=== PATIENT | female | born 1940 | race Caucasian/White ===

== ENCOUNTER 2018-08-04 18:05 | Inpatient (IN) | payer MEDICARE ==
[2018-08-04] MEDS ORDERED: Sodium Chloride 0.9% 100 ML ONE (22:55)
[2018-08-04] MEDS ORDERED: Cefepime 2 GM VIAL ONE (22:55)
[2018-08-05] MEDS ORDERED: ALPRAZolam 0.25 MG TAB PO PRN (03:06)
[2018-08-05] MEDS ORDERED: Calcium Carbonate 500 MG ChewTAB PO PRN (03:09)
[2018-08-05] MEDS ORDERED: Bisacodyl 5 MG TAB PO PRN (03:09)
[2018-08-05] MEDS ORDERED: Ondansetron PF 4 MG/2 ML Vial IVP PRN (03:09)
[2018-08-05] MEDS ORDERED: Guaifenesin DM 100-10/5 ML UDCUP PO PRN (03:09)
[2018-08-05] MEDS ORDERED: Senokot S 8.6-50 MG TAB PO PRN (03:09)
[2018-08-05] MEDS ORDERED: Acetaminophen 325 MG TAB PO PRN (03:09)
[2018-08-05 03:49] LABS: #Lymphocytes 0.6 thou/uL (1.20-3.40); #Monocytes 0.2 thou/uL (0.11-0.59); #Neutrophils 5.6 thou/uL (1.40-6.50); %Basophils 0.2 % (0.0-1.0); %Lymphocytes 9.8 % (21.0-51.0); %Monocytes 2.7 % (0.0-10.0); %Neutrophils 87.4 % (42.0-75.0); Hemoglobin 12.3 g/dL (12.0-16.0); Mean Corpuscular Hemoglobin 31.9 pg (27.0-31.0); Mean Corpuscular Volume 96.8 fL (78.0-98.0); Mean Platelet Volume 7.4 fL (7.4-10.4); Platelet Count 282 thou/uL (130-400); RBC Distribution Width 12.8 % (11.5-14.5); Red Blood Cell (RBC) Count 3.86 mill/uL (4.20-5.40); White Blood Cell (WBC) Count 6.4 thou/uL (4.8-10.8)
[2018-08-05 04:09] LABS: Anion Gap 12 mmol/L (10-20); BUN (Urea Nitrogen) 14 mg/dL (9.8-20.1); Calc. Creatinine Clearance 0 mL/min (70-130); Calcium 9.4 mg/dL (7.8-10.44); Carbon Dioxide 29 mmol/L (23-31); Chloride 96 mmol/L (98-107); Estimated GFR-MDRD 79; Glucose 237 mg/dL (83-110); Potassium 4.4 mmol/L (3.5-5.1); Sodium 133 mmol/L (136-145)
[2018-08-05] MEDS: Mometasone/Formoterol 120 PUFF INHALER INH SCH ×2 (08:17→18:44)
[2018-08-05] MEDS ORDERED: Non-Formulary Item 1 EACH (Fluticasone/Vilanterol [Breo Ellipta 200-25 Mcg Inh] 1 EACH) IH SCH (09:00)
[2018-08-05] MEDS ORDERED: Amlodipine 5 MG TAB ONE (10:44)
[2018-08-05] MEDS: Levothyroxine Sodium 112 MCG TAB PO SCH (10:51)
[2018-08-05] MEDS: Dronedarone HCl 400 MG TAB PO SCH ×2 (10:51→17:16)
[2018-08-05] MEDS: predniSONE 20 MG TAB PO SCH ×2 (10:51→17:16)
[2018-08-05] MEDS: Amlodipine 5 MG TAB PO SCH (10:51)
[2018-08-05] MEDS: Famotidine 20 MG TAB PO SCH ×2 (10:52→21:11)
[2018-08-05] MEDS: Apixaban 2.5 MG TAB PO SCH ×2 (10:52→21:11)
[2018-08-05] MEDS: Famotidine/PF 20 mg/2ml Vial SLOW IVP SCH ×2 (10:52→21:11)
[2018-08-05] MEDS: Citalopram 20 MG TAB PO SCH (10:52)
--- NOTE | 2018-08-05 13:41 | HP ---
CHIEF COMPLAINT: Shortness of breath. HISTORY OF PRESENT ILLNESS: The patient is a 78-year-old female, who presented to [facility] by EMS after she became sick, which presented as shortness of breath. Apparently, she has a history of COPD versus asthma problem at home and she was seen by her primary care physician on Saturday, a week ago, Dr. Atkinson. She felt fine until this morning when she started having acute onset of a shortness of breath. She denied any chest pains. She felt feverish. She had some cough with mucus/yellow phlegm production. She had some chills. She was brought to the emergency room and had a pulse oximetry was running in the 80s. She was tachycardic, tachypneic. She has been treated at [facility] for possible CHF exacerbation/pneumonia and she was transported to [facility] in [place], and she is getting admitted for further management of her problem. She had some runny nose for a week. She felt tired, but everything gradually got worse and when she became short of breath, she called EMS and was transported to the emergency room. Her temperature in the emergency room was up to 103, tympanic. She was given one dose of vancomycin and one dose of cefepime. PAST MEDICAL HISTORY: Positive for; 1. Questionable chronic obstructive pulmonary disease versus asthma. 2. Hypertension. 3. Anxiety and depression. 4. Hypothyroidism. 5. History of atrial fibrillation. PAST SURGICAL HISTORY: Cataract surgery. ALLERGIES: NONE EXCEPT FOR SULFA. HOME MEDICATIONS: Please refer to the medication list. SOCIAL HISTORY: She used to smoke. She does not smoke, but she drinks one glass of wine on daily basis. FAMILY HISTORY: Mother of some type of female cancer at the age of 58, and father at age 89. REVIEW OF SYSTEMS: All review of systems was reviewed and negative except per the HPI. PHYSICAL EXAMINATION: VITAL SIGNS: Blood pressure is 106/64, pulse is 74, respiratory rate is 23, O2 saturation is within normal limits. GENERAL: She is on O2. She looks tired and kind of sick, but she states that she feels significantly better. HEENT: Head is atraumatic and normocephalic. Eyes are PERRLA. Sclerae are nonicteric. Oral mucosa is dry. NECK: Supple. No lymphadenopathy. LUNGS: Bilateral rales at both bases, mild to moderate. No wheezing. HEART: S1 and S2 normal. No S3. No S4. ABDOMEN: Soft, nontender, and nondistended. Bowel sounds are present. No organomegaly. EXTREMITIES: No clubbing, cyanosis, or edema. NEUROLOGIC: She is alert and oriented x4. There is no any motor or sensory deficits present. Cranial nerves are intact. LABORATORY DATA: White count of 6.4, hemoglobin 12.3, hematocrit 37.4, and platelet count 282,000. Chemistry showed sodium of 133, potassium 4.4, chloride 96, BUN 14, and creatinine 0.72. Glucose 237. Troponin I less than 0.010. DIAGNOSTIC DATA: EKG showed normal sinus rhythm with T-wave inversions in V1 and V2. Otherwise, the EKG is normal. Chest x-ray showed diffuse increased interstitial markings in both lungs, more on the right side than on the left side. There is no any focal infiltrate. IMPRESSION: 1. Suspicion for sepsis. The patient presented with shortness of breath, hypoxia, and hypotension. Normal white count. Source would be probably pulmonary. 2. Pulmonary infection, this could be bronchopneumonia. 3. History of chronic obstructive pulmonary disease/asthma. 4. Hypertension. 5. Hyponatremia, hypochloremia, most likely secondary to dehydration. 6. Anxiety/depression. 7. Hypothyroidism. PLAN: Admission to telemetry floor. Condition is fair. Activity, bedrest and bathroom privileges. The patient is full code. Surrogate decision maker is her older sister. IV Hep-Lock. Levofloxacin 750 mg once a day. Prednisone 20 mg twice a day. Guaifenesin p.r.n. DuoNebs q.4 hours. Continue her home medications with diltiazem, dronedarone, citalopram, apixaban, and amlodipine. We will obtain echocardiogram to assess her left ventricular ejection fraction. We will keep her on SCDs for DVT prophylaxis and she is on apixaban, so this should cover for DVT prophylaxis chemically. Job ID: [id number]
[2018-08-05 14:15] VITALS: BMI 22.0
[2018-08-05 17:20] LABS: Hemoglobin 10.8 g/dL (12.0-16.0); Platelet Count 297 thou/uL (130-400)
[2018-08-06] MEDS: Levothyroxine Sodium 112 MCG TAB PO SCH (05:00)
[2018-08-06 05:45] LABS: Anion Gap 13 mmol/L (10-20); BUN (Urea Nitrogen) 17 mg/dL (9.8-20.1); Calc. Creatinine Clearance 68 mL/min (70-130); Calcium 9.5 mg/dL (7.8-10.44); Carbon Dioxide 29 mmol/L (23-31); Chloride 98 mmol/L (98-107); Estimated GFR-MDRD 87; Glucose 150 mg/dL (83-110); Potassium 3.9 mmol/L (3.5-5.1); Sodium 136 mmol/L (136-145)
[2018-08-06 06:15] LABS: Band 1 % (5-11); Hemoglobin 10.2 g/dL (12.0-16.0); Hypochromia SLIGHT = 6-15 cells (100X) (0-5/hpf); Lymphocytes 2 % (21-51); MDiff Complete? YES; Mean Corpuscular Hemoglobin 30.7 pg (27.0-31.0); Mean Corpuscular Volume 95.8 fL (78.0-98.0); Mean Platelet Volume 7.4 fL (7.4-10.4); Monocytes 5 % (0-10); Neutrophil 92 % (42-75); Platelet Count 357 thou/uL (130-400); Platelet Morphology Comment Appears Adequate; RBC Distribution Width 12.8 % (11.5-14.5); Red Blood Cell (RBC) Count 3.34 mill/uL (4.20-5.40)
[2018-08-06] MEDS: Mometasone/Formoterol 120 PUFF INHALER INH SCH ×2 (08:20→20:16)
[2018-08-06] MEDS: Apixaban 2.5 MG TAB PO SCH ×2 (09:01→21:12)
[2018-08-06] MEDS: Citalopram 20 MG TAB PO SCH (09:02)
[2018-08-06] MEDS: Dronedarone HCl 400 MG TAB PO SCH ×2 (09:02→17:49)
[2018-08-06] MEDS: Famotidine 20 MG TAB PO SCH ×2 (09:03→21:12)
[2018-08-06] MEDS: predniSONE 20 MG TAB PO SCH (09:03)
[2018-08-06] MEDS: Famotidine/PF 20 mg/2ml Vial SLOW IVP SCH ×2 (09:06→21:13)
[2018-08-06] MEDS: Amlodipine 5 MG TAB PO SCH (09:23)
[2018-08-06] MEDS ORDERED: Iopamidol 370 76% 100 ML VIAL ONE (11:41)
[2018-08-06] MEDS ORDERED: Lorazepam 0.5 MG TAB PO SCH (13:00)
[2018-08-06 14:19] LABS: Bilirubin Negative (Negative); Blood, Urine Negative (Negative); Clarity CLEAR (Clear); Glucose, Urine (Dipstick) Negative (Negative); Leukocyte Negative (Negative); Nitrite Negative (Negative); Protein, Urine (Dipstick) Negative (Neg-Trace); Specific Gravity, Urine 1.013 (1.002-1.036); Urobilinogen 0.2 mg/dL (0.2-1.0)
[2018-08-06 14:21] LABS: Bacteria/HPF None Seen HPF (None Seen); Hyaline Casts/LPF 4-6 HYALINE CAST LPF (0-3 Hyaline); Pathc Cast-AUWi Flag 1.01 (0-2.49); RBC/HPF 0-3 HPF (0-3)
[2018-08-06 14:40] LABS: Renal Epithelial 0-3 HPF (0-3); Transitional Epithelial 0-3 HPF (0-3)
--- NOTE | 2018-08-06 15:43 | PRG ---
DATE OF SERVICE: 08/06/2018 SUBJECTIVE: The patient is seen and examined at the bedside. All family members are in the room during my visit. She put makeup on her face today. She has lipstick on her lips. She feels significantly better, but the nurse noticed that she is somewhat anxious and not able to sit still. OBJECTIVE: VITAL SIGNS: Blood pressure is 102/54, pulse is 90, temperature is 97.9, respiratory rate is 20, O2 saturation is 95% on 3 L by nasal cannula. HEENT: Head is atraumatic and normocephalic. Eyes are PERRLA. Sclerae nonicteric. Oral mucosa is moist. NECK: Supple. LUNGS: She has rales at both bases. Few wheezes bilaterally at both bases. HEART: S1 and S2 normal. No S3. No S4. ABDOMEN: Soft, nontender. Bowel sounds are present. No organomegaly. EXTREMITIES: No clubbing, cyanosis, or edema. NEUROLOGIC: She is somewhat agitated, but she follows commands. She has some difficulty to find words. Apparently, she has a history of anxiety in the past. LABORATORY DATA: Labs showed a white count of 11.0, hemoglobin 10.2, hematocrit 32.0, platelet count is 357,000. Electrolytes within normal limits. BUN 17, creatinine 0.66. Urinalysis showed 4 to 6 wbc's, 4 to 6 squamous epithelial cells, and 4 to 6 hyaline casts, otherwise within normal limits. IMPRESSION: 1. Suspected sepsis of unclear source with negative blood cultures. Her white count is barely above the range. 2. History of chronic obstructive pulmonary disease/asthma. 3. Hypertension. 4. Hyponatremia and hypochloremia secondary to dehydration. 5. Anxiety/depression. 6. Hypothyroidism. 7. Agitated state of unclear etiology to rule out delirium. PLAN: Plan is to do a CT angiogram of her chest since she was hypoxic and tachypneic and tachycardic at the time of admission, and now she does not complain about any cough and she seems to be comfortable. We are going to rule out PE. We will cut her DuoNeb to four times a day. We will try one dose of Ativan 0.5 mg, see how this works, and we will continue her antibiotic, which is levofloxacin 750 mg once a day. Also, I will cut back on her prednisone to 20 mg once a day and we will continue her Multaq, diltiazem, citalopram, Eliquis, amlodipine, levothyroxine, and her Dulera. Job ID: [id number]
--- NOTE | 2018-08-06 15:58 | CT ---
CT ARTERIOGRAM CHEST WITH IV CONTRAST AND 3D MIP IMAGIN08/06/18 HISTORY: Hypoxia. Chest pain. FINDINGS: There is good contrast opacification of the pulmonary arteries and thoracic aorta with normal branchi ng of the great vessels at the aortic arch. Lungs are hyperinflated with scattered interstitial thick ening and bullae. Scattered areas of scarring and mild nodular parenchymal infiltrate are present wit hout lobar consolidation or focal mass-like appearance. Scarring at each apex. No pleural fluid, mediastinal adenopathy, or pneumothorax. IMPRESSION: No CT evidence of pulmonary embolus. COPD with some interstitial lung disease evident. The multifocal areas of scarring and nonmass-like i nfiltrate are favored to represent recurrent inflammation. POS: [facility]
[2018-08-06] MEDS: Zolpidem Tartrate 5 MG TAB PO PRN (21:14)
[2018-08-07] MEDS: Levothyroxine Sodium 112 MCG TAB PO SCH (05:07)
[2018-08-07 05:11] LABS: #Basophils 0.2 thou/uL (0.0-0.2); #Lymphocytes 0.9 thou/uL (1.20-3.40); #Monocytes 1.3 thou/uL (0.11-0.59); #Neutrophils 7.8 thou/uL (1.40-6.50); %Basophils 1.9 % (0.0-1.0); %Eosinophils 0.2 % (0.0-10.0); %Lymphocytes 8.4 % (21.0-51.0); %Monocytes 12.6 % (0.0-10.0); %Neutrophils 76.9 % (42.0-75.0); Hemoglobin 10.3 g/dL (12.0-16.0); Mean Corpuscular HGB CONC 32.6 g/dL (32.0-36.0); Mean Corpuscular Hemoglobin 31.4 pg (27.0-31.0); Mean Corpuscular Volume 96.3 fL (78.0-98.0); Mean Platelet Volume 6.9 fL (7.4-10.4); Platelet Count 437 thou/uL (130-400); Red Blood Cell (RBC) Count 3.28 mill/uL (4.20-5.40); White Blood Cell (WBC) Count 10.1 thou/uL (4.8-10.8)
[2018-08-07 05:43] LABS: Anion Gap 16 mmol/L (10-20); BUN (Urea Nitrogen) 18 mg/dL (9.8-20.1); Calc. Creatinine Clearance 67 mL/min (70-130); Calcium 9.3 mg/dL (7.8-10.44); Carbon Dioxide 29 mmol/L (23-31); Chloride 100 mmol/L (98-107); Estimated GFR-MDRD 86; Glucose 95 mg/dL (83-110); Potassium 4.7 mmol/L (3.5-5.1); Sodium 140 mmol/L (136-145)
[2018-08-07] MEDS: Mometasone/Formoterol 120 PUFF INHALER INH SCH ×2 (07:06→20:12)
[2018-08-07] MEDS: Apixaban 2.5 MG TAB PO SCH ×2 (08:25→19:55)
[2018-08-07] MEDS: Dronedarone HCl 400 MG TAB PO SCH ×2 (08:25→17:03)
[2018-08-07] MEDS: Citalopram 20 MG TAB PO SCH (08:26)
[2018-08-07] MEDS: Famotidine 20 MG TAB PO SCH ×2 (08:26→19:55)
[2018-08-07] MEDS: predniSONE 20 MG TAB PO SCH (08:26)
[2018-08-07] MEDS: Famotidine/PF 20 mg/2ml Vial SLOW IVP SCH ×2 (08:28→19:56)
[2018-08-07] MEDS ORDERED: predniSONE 20 MG TAB PO SCH (09:00)
[2018-08-07] MEDS: Amlodipine 5 MG TAB PO SCH (09:35)
[2018-08-07] MEDS ORDERED: Lorazepam 0.5 MG TAB PO SCH (12:00)
--- NOTE | 2018-08-07 12:05 | PRG ---
DATE OF SERVICE: 08/07/2018 SUBJECTIVE: The patient is seen and examined at the bedside. Her sister is present in the room during my visit. The patient is feeling significantly better. She received one dose of lorazepam yesterday and she had good response, her anxiety improved after that. OBJECTIVE: VITAL SIGNS: Blood pressure is 100/55, pulse is 87, respiratory rate 18, and O2 saturation is 95% on 2 L by nasal cannula. HEENT: Her head is atraumatic and normocephalic. Eyes are PERRLA. Sclerae are nonicteric. Oral mucosa is moist. NECK: Supple. No lymphadenopathy. LUNGS: Bilateral wheezing. Mild more emphysematous changes bilaterally. No crackles. HEART: S1 and S2, irregular. No S3. No S4. No any murmur. ABDOMEN: Soft and nontender. Bowel sounds are present. No organomegaly. EXTREMITIES: No clubbing, cyanosis, or edema. NEUROLOGIC: She follows my commands. She moves her all 4 extremities. There are no any motor deficits. Cranial nerves are intact. LABORATORY DATA: Labs showed white count of 10.1, hemoglobin 10.3, hematocrit 31.6, and platelet count 437. Normal basic metabolic panel. Microbiology, none. IMPRESSION: 1. Suspect sepsis of unclear source with negative blood cultures. 2. Respiratory failure with hypoxemia, most likely secondary to chronic obstructive pulmonary disease/asthma, improving. 3. Anxiety. 4. Hypertension. 5. Hyponatremia and hypochloremia secondary to dehydration, improved and resolved. 6. Hypothyroidism. 7. Normocytic anemia. 8. Thrombocytosis with platelet count 437,000 today. PLAN: Plan is to do guaiac on her to rule out any bleeding. Her hemoglobin dropped from 12.3 to 10.3 in 2 days. She does not have any signs of acute bleeding. We are going to continue her prednisone 40 mg once a day. We are going to start her on lorazepam 0.5 mg twice a day for her anxiety. Also, we will continue her levofloxacin 750 mg IV piggyback and we will continue her diltiazem, citalopram, Eliquis, and amlodipine. Job ID: [id number]
[2018-08-07 15:25] LABS: Hemoglobin 10.8 g/dL (12.0-16.0); Platelet Count 511 thou/uL (130-400)
[2018-08-07] MEDS: Lorazepam 0.5 MG TAB PO SCH (19:56)
[2018-08-08] MEDS: Levothyroxine Sodium 112 MCG TAB PO SCH (05:04)
[2018-08-08] MEDS: Apixaban 2.5 MG TAB PO SCH ×2 (08:38→20:06)
[2018-08-08] MEDS: Citalopram 20 MG TAB PO SCH (08:38)
[2018-08-08] MEDS: Dronedarone HCl 400 MG TAB PO SCH ×2 (08:38→18:41)
[2018-08-08] MEDS: Famotidine 20 MG TAB PO SCH ×2 (08:38→20:06)
[2018-08-08] MEDS: predniSONE 20 MG TAB PO SCH (08:38)
[2018-08-08] MEDS: Amlodipine 5 MG TAB PO SCH (08:39)
[2018-08-08] MEDS: Lorazepam 0.5 MG TAB PO SCH ×2 (08:39→20:06)
[2018-08-08] MEDS: Mometasone/Formoterol 120 PUFF INHALER INH SCH ×2 (11:05→18:52)
--- NOTE | 2018-08-08 13:14 | PRG ---
DATE OF SERVICE: 08/08/2018 SUBJECTIVE: The patient denies any new complaints at this time. Shortness of breath is improving. She is currently on 2 L nasal cannula. She gets short of breath on minimal exertion. She also has intermittent coughing. Wheezing is improving. OBJECTIVE: VITAL SIGNS: Temperature 98.5, pulse 88, respirations of 18, O2 saturation 93% on 1 L nasal cannula, blood pressure 93/51. GENERAL: A 78-year-old female in mild respiratory distress, able to complete short phrases. HEART: S1 and S2 present. Regular. No rubs or gallops. ABDOMEN: Soft. Bowel sounds present. LUNGS: Showed scattered rales with rhonchi. Minimal wheezing noted. There is some use of accessory muscles. NEUROLOGY: Grossly nonfocal. CURRENT MEDICATIONS: Current medications were reviewed. The patient is on Levaquin, amlodipine, Eliquis, Multaq, levothyroxine, lorazepam, and oral prednisone. LABORATORY FINDINGS: 1. WBC 10.1 with hemoglobin 10.3, hematocrit 31.6, platelets 437. 2. Creatinine 0.8. 3. Influenza testing was negative. 4. Echocardiogram showed left ventricular ejection fraction 55% to 60% with mild tricuspid regurgitation, mild mitral regurgitation. 5. Telemetry monitoring by my review showed sinus rhythm. IMPRESSION: 1. Sepsis, secondary to pneumonia suspected pneumococcal. 2. Chronic obstructive pulmonary disease exacerbation. 3. Hypertension. 4. Paroxysmal atrial fibrillation, on anticoagulation. The patient is currently in sinus rhythm. 5. Anxiety depression. 6. Hypothyroidism. 7. Chronic kidney disease, stage 3. 8. Chronic anemia. 9. Mild mitral and tricuspid regurgitation. PLAN: Antibiotics and nebulizer treatments will be continued. She is still requiring oxygen. We will transfer her to medical. Recheck labs in a.m. Continue other medications as above. Disposition probably in 1 to 2 days. We will try to wean oxygen. Job ID: [id number]
[2018-08-08] MEDS: Docusate 100 MG CAP PO SCH (20:04)
[2018-08-09] MEDS: Levothyroxine Sodium 112 MCG TAB PO SCH (05:37)
[2018-08-09 06:28] LABS: Anion Gap 11 mmol/L (10-20); BUN (Urea Nitrogen) 11 mg/dL (9.8-20.1); Calc. Creatinine Clearance 69 mL/min (70-130); Calcium 9.1 mg/dL (7.8-10.44); Carbon Dioxide 37 mmol/L (23-31); Chloride 96 mmol/L (98-107); Estimated GFR-MDRD 89; Glucose 86 mg/dL (83-110); Magnesium 2.3 mg/dL (1.6-2.6); Sodium 140 mmol/L (136-145)
[2018-08-09] MEDS: Mometasone/Formoterol 120 PUFF INHALER INH SCH ×2 (06:30→18:20)
[2018-08-09] MEDS: Apixaban 2.5 MG TAB PO SCH ×2 (09:13→20:31)
[2018-08-09] MEDS: Amlodipine 5 MG TAB PO SCH (09:13)
[2018-08-09] MEDS: predniSONE 20 MG TAB PO SCH (09:13)
[2018-08-09] MEDS: Docusate 100 MG CAP PO SCH (09:14)
[2018-08-09] MEDS: Lorazepam 0.5 MG TAB PO SCH ×2 (09:14→20:31)
[2018-08-09] MEDS: Citalopram 20 MG TAB PO SCH (09:14)
[2018-08-09] MEDS: Dronedarone HCl 400 MG TAB PO SCH ×2 (10:02→17:56)
[2018-08-09] MEDS: Famotidine 20 MG TAB PO SCH ×2 (10:03→20:38)
--- NOTE | 2018-08-09 11:12 | EKG ---
Test Reason : Blood Pressure : / mmHG Vent. Rate : 071 BPM Atrial Rate : 071 BPM P-R Int : 152 ms QRS Dur : 068 ms QT Int : 418 ms P-R-T Axes : 067 081 074 degrees QTc Int : 454 ms Normal sinus rhythm Anteroseptal infarct , age undetermined Abnormal ECG Confirmed by SHANI NOLASCO ([id number]), mapping editor JAVI TURCIOS ([id number]) on 08/09/2018 11:12:12 AM Referred By: Confirmed By:SHANI NOLASCO
--- NOTE | 2018-08-09 13:25 | PDOC.PN ---
- Subjective Encounter Start Date: 08/09/18 Encounter Start Time: 10:00 Patient seen and examined for resp failure. Feels somewhat better. No fever. No new complaints. No overnight events - Objective Resuscitation Status - Order Detail: 08/05/18 03:09 Resuscitation Status Routine Resuscitation Status: FULL: Full Resuscitation MAR Reviewed: Yes Vital Signs & Weight: Vital Signs (12 hours) Temp Pulse Resp BP BP BP BP 08/09/18 12:00 98.0 F 93 20 116/56 L 08/09/18 10:22 80 16 08/09/18 09:13 83 117/56 L 08/09/18 08:00 97.9 F 83 24 H 117/56 L 08/09/18 06:42 08/09/18 06:30 86 12 08/09/18 06:20 86 12 08/09/18 04:00 98.2 F 91 20 128/74 08/09/18 02:10 12 Pulse Ox 08/09/18 12:00 95 08/09/18 10:22 08/09/18 09:13 08/09/18 08:00 94 L 08/09/18 06:42 99 08/09/18 06:30 08/09/18 06:20 08/09/18 04:00 94 L 08/09/18 02:10 Weight Weight 130 lb 3.2 oz I&O: 08/08/18 08/09/18 08/10/18 06:59 06:59 06:59 Intake Total 390 1240 Output Total 400 Balance -10 1240 Result Diagrams: 08/07/18 15:05 08/09/18 05:50 Phys Exam - Physical Examination Constitutional: NAD Respiratory: no wheezing Scat rhonchi Cardiovascular: RRR, no rub Gastrointestinal: soft, non-tender, positive bowel sounds Musculoskeletal: no edema Neurological: moves all 4 limbs Dx/Plan - Plan 1. Sepsis, secondary to pneumonia suspected pneumococcal. 2. Acute hypoxic respiratory failure due to Chronic obstructive pulmonary disease exacerbation. 3. Hypertension. 4. Paroxysmal atrial fibrillation, on anticoagulation. 5. Anxiety depression. 6. Hypothyroidism. 7. Chronic kidney disease, stage 3. 8. Chronic anemia. 9. Mild mitral and tricuspid regurgitation. PLAN: Cont Atbx/Steroids and Nebs Q4h Wean O2 DC in 1-2 days if stable Cont current meds as below AM labs Review of Systems - Review of Systems Respiratory: Cough, Dry. negative: Shortness of Breath, Hemoptysis, SOB with Excertion, Pleuritic Pain, Sputum, Wheezing Cardiovascular: negative: chest pain, palpitations, orthopnea, paroxysmal nocturnal dyspnea, edema, light headedness, other - Medications/Allergies Allergies/Adverse Reactions: Allergies Allergy/AdvReac Type Severity Reaction Status Date / Time Sulfa (Sulfonamide Allergy Verified 06/29/16 21:37 Antibiotics) Medications: Current Medications Acetaminophen (Tylenol) 650 mg PO Q4H PRN PRN Reason: Headache/Fever/Mild Pain (1-3) Last Admin: 08/09/18 10:02 Dose: 650 mg Albuterol/Ipratropium (Duoneb) 3 ml NEB [id number] PRN PRN Reason: SOB &/or Wheezing Albuterol/Ipratropium (Duoneb) 3 ml NEB [id number] Last Admin: 08/09/18 10:22 Dose: 3 ml Amlodipine Besylate (Norvasc) 5 mg PO DAILY [facility] Last Admin: 08/09/18 09:13 Dose: 5 mg Apixaban (Eliquis) 2.5 mg PO BID [facility] Last Admin: 08/09/18 09:13 Dose: 2.5 mg Bisacodyl (Dulcolax) 10 mg PO DAILYPRN PRN PRN Reason: Constipation Calcium Carbonate (Tums) 1,000 mg PO Q4H PRN PRN Reason: Heartburn or Indigestion Citalopram Hydrobromide (Celexa) 20 mg PO DAILY [facility] Last Admin: 08/09/18 09:14 Dose: 20 mg Diltiazem HCl (Cardizem Cd) 240 mg PO QPM [facility] Last Admin: 08/08/18 20:06 Dose: 240 mg Docusate Sodium (Colace) 100 mg PO BID [facility] Last Admin: 08/09/18 09:14 Dose: Not Given Dronedarone (Multaq) 400 mg PO BID-[facility] Last Admin: 08/09/18 10:02 Dose: 400 mg Famotidine (Pepcid) 20 mg PO BID [facility] Last Admin: 08/09/18 10:03 Dose: 20 mg Guaifenesin/Dextromethorphan (Robitussin Dm) 15 ml PO Q4H PRN PRN Reason: Cough Levofloxacin (Levaquin) 750 mg PO 0600 [facility] Last Admin: 08/09/18 05:37 Dose: 750 mg Levothyroxine Sodium (Synthroid) 112 mcg PO 0600 [facility] Last Admin: 08/09/18 05:37 Dose: 112 mcg Lorazepam (Ativan) 0.5 mg PO BID [facility] Last Admin: 08/09/18 09:14 Dose: 0.5 mg Miscellaneous Medication (Pharmacy To Dose) 1 each IVPB ONE PRN PRN Reason: Pharmacy to dose Stop: 08/15/18 03:10 Mometasone Furoate/Formoterol Fumar (Dulera 200 Mcg/5 Mcg Inhaler) 2 puff INH BID-[facility] Last Admin: 08/09/18 06:30 Dose: 2 puff Ondansetron HCl (Zofran) 4 mg IVP Q6H PRN PRN Reason: Nausea/Vomiting Prednisone (Prednisone) 40 mg PO DAILY [facility] Last Admin: 08/09/18 09:13 Dose: 40 mg Senna/Docusate Sodium (Senokot S) 2 tab PO BID PRN PRN Reason: Constipation Sodium Chloride (Flush - Normal Saline) 10 ml IVF Q12HR PRN PRN Reason: Saline Flush Last Admin: 08/06/18 09:04 Dose: 10 ml Sodium Chloride (Flush - Normal Saline) 10 ml IVF PRN PRN PRN Reason: Saline Flush Zolpidem Tartrate (Ambien) 5 mg PO HSPRN PRN PRN Reason: Insomnia Last Admin: 08/06/18 21:14 Dose: 5 mg
[2018-08-09] MEDS: guaiFENesin ER 600 MG TAB PO SCH (20:38)
[2018-08-09] MEDS: Zolpidem Tartrate 5 MG TAB PO PRN (22:30)
[2018-08-10] MEDS: Levothyroxine Sodium 112 MCG TAB PO SCH (06:16)
[2018-08-10 06:34] LABS: #Basophils 0.1 thou/uL (0.0-0.2); #Eosinphils 0.1 thou/uL (0.0-0.7); #Lymphocytes 1.6 thou/uL (1.20-3.40); #Neutrophils 6.7 thou/uL (1.40-6.50); %Basophils 0.9 % (0.0-1.0); %Eosinophils 0.6 % (0.0-10.0); %Lymphocytes 16.4 % (21.0-51.0); %Monocytes 10.8 % (0.0-10.0); %Neutrophils 71.3 % (42.0-75.0); Hemoglobin 10.9 g/dL (12.0-16.0); Mean Corpuscular HGB CONC 31.5 g/dL (32.0-36.0); Mean Corpuscular Volume 98.4 fL (78.0-98.0); Mean Platelet Volume 6.1 fL (7.4-10.4); Platelet Count 632 thou/uL (130-400); RBC Distribution Width 13.1 % (11.5-14.5); Red Blood Cell (RBC) Count 3.51 mill/uL (4.20-5.40); White Blood Cell (WBC) Count 9.5 thou/uL (4.8-10.8)
[2018-08-10] MEDS: Mometasone/Formoterol 120 PUFF INHALER INH SCH ×2 (06:52→19:31)
[2018-08-10 06:54] LABS: Anion Gap 12 mmol/L (10-20); BUN (Urea Nitrogen) 12 mg/dL (9.8-20.1); Calc. Creatinine Clearance 69 mL/min (70-130); Calcium 9.3 mg/dL (7.8-10.44); Carbon Dioxide 36 mmol/L (23-31); Chloride 95 mmol/L (98-107); Estimated GFR-MDRD 89; Glucose 86 mg/dL (83-110); Potassium 4.6 mmol/L (3.5-5.1); Sodium 138 mmol/L (136-145)
[2018-08-10] MEDS ORDERED: Lorazepam 1 MG TAB PO SCH (09:00)
[2018-08-10] MEDS: Amlodipine 5 MG TAB PO SCH (09:17)
[2018-08-10] MEDS: Dronedarone HCl 400 MG TAB PO SCH ×2 (09:17→16:56)
[2018-08-10] MEDS: Apixaban 2.5 MG TAB PO SCH ×2 (09:18→20:45)
[2018-08-10] MEDS: Citalopram 20 MG TAB PO SCH (09:18)
[2018-08-10] MEDS: guaiFENesin ER 600 MG TAB PO SCH ×2 (09:18→20:44)
[2018-08-10] MEDS: Famotidine 20 MG TAB PO SCH ×2 (09:18→20:44)
[2018-08-10] MEDS: predniSONE 20 MG TAB PO SCH (09:19)
[2018-08-10] MEDS ORDERED: Lorazepam 1 MG TAB PO PRN (10:07)
[2018-08-10] MEDS: Lorazepam 0.5 MG TAB PO SCH (10:24)
--- NOTE | 2018-08-10 11:07 | PDOC.PN ---
- Subjective Encounter Start Date: 08/10/18 Encounter Start Time: 11:04 Patient seen and examined for Resp failure. Feels better. No new complaints. No overnight events - Objective Resuscitation Status - Order Detail: 08/05/18 03:09 Resuscitation Status Routine Resuscitation Status: FULL: Full Resuscitation MAR Reviewed: Yes Vital Signs & Weight: Vital Signs (12 hours) Temp Pulse Resp BP BP BP Pulse Ox 08/10/18 10:41 83 15 94 L 08/10/18 09:17 91 92/47 L 08/10/18 09:16 97/53 L 08/10/18 08:00 97.7 F 91 22 H 92/47 L 93 L 08/10/18 06:46 81 12 96 08/10/18 04:00 98.0 F 78 16 103/62 92 L 08/10/18 02:21 87 20 95 08/09/18 23:41 98.1 F 92 20 129/55 L 95 Weight Weight 130 lb 3.2 oz I&O: 08/09/18 08/10/18 08/11/18 06:59 06:59 06:59 Intake Total 1240 1180 Balance 1240 1180 Result Diagrams: 08/10/18 06:24 08/10/18 06:24 Phys Exam - Physical Examination Constitutional: NAD Respiratory: no wheezing, no rhonchi Cardiovascular: RRR, no rub Gastrointestinal: soft, non-tender, positive bowel sounds Musculoskeletal: no edema Neurological: moves all 4 limbs Dx/Plan - Plan cont current plan of care, DVT proph w/SCDs 1. Sepsis, secondary to pneumonia suspected pneumococcal. 2. Acute hypoxic respiratory failure due to COPD exacerbation. 3. Hypertension. 4. Paroxysmal atrial fibrillation, on anticoagulation. 5. Anxiety depression. 6. Hypothyroidism. 7. Chronic kidney disease, stage 3. 8. Chronic anemia. 9. Mild mitral and tricuspid regurgitation. PLAN: Cont current dose of antibiotics Cont Steroids and Nebs Q4h Cont to wean O2 Cont current meds as below AM labs Home O2 assesment in AM Review of Systems - Review of Systems Respiratory: Cough, Dry. negative: Shortness of Breath, Hemoptysis, SOB with Excertion, Pleuritic Pain, Sputum, Wheezing Cardiovascular: negative: chest pain, palpitations, orthopnea, paroxysmal nocturnal dyspnea, edema, light headedness, other Gastrointestinal: negative: Nausea, Vomiting, Abdominal Pain, Diarrhea, Constipation, Melena, Hematochezia, Other - Medications/Allergies Allergies/Adverse Reactions: Allergies Allergy/AdvReac Type Severity Reaction Status Date / Time Sulfa (Sulfonamide Allergy Verified 06/29/16 21:37 Antibiotics) Medications: Current Medications Acetaminophen (Tylenol) 650 mg PO Q4H PRN PRN Reason: Headache/Fever/Mild Pain (1-3) Last Admin: 08/09/18 10:02 Dose: 650 mg Albuterol/Ipratropium (Duoneb) 3 ml NEB [id number] PRN PRN Reason: SOB &/or Wheezing Albuterol/Ipratropium (Duoneb) 3 ml NEB [id number] [facility] Last Admin: 08/10/18 10:41 Dose: 3 ml Apixaban (Eliquis) 2.5 mg PO BID [facility] Last Admin: 08/10/18 09:18 Dose: 2.5 mg Bisacodyl (Dulcolax) 10 mg PO DAILYPRN PRN PRN Reason: Constipation Calcium Carbonate (Tums) 1,000 mg PO Q4H PRN PRN Reason: Heartburn or Indigestion Citalopram Hydrobromide (Celexa) 20 mg PO DAILY [facility] Last Admin: 08/10/18 09:18 Dose: 20 mg Diltiazem HCl (Cardizem Cd) 240 mg PO QPM [facility] Last Admin: 08/09/18 20:31 Dose: 240 mg Dronedarone (Multaq) 400 mg PO BID-[facility] Last Admin: 08/10/18 09:17 Dose: 400 mg Famotidine (Pepcid) 20 mg PO BID [facility] Last Admin: 08/10/18 09:18 Dose: 20 mg Guaifenesin (Mucinex) 600 mg PO Q12HR [facility] Last Admin: 08/10/18 09:18 Dose: 600 mg Guaifenesin/Dextromethorphan (Robitussin Dm) 15 ml PO Q4H PRN PRN Reason: Cough Levofloxacin (Levaquin) 750 mg PO 0600 [facility] Last Admin: 08/10/18 06:16 Dose: 750 mg Levothyroxine Sodium (Synthroid) 112 mcg PO 0600 [facility] Last Admin: 08/10/18 06:16 Dose: 112 mcg Lorazepam (Ativan) 0.5 mg PO BID PRN PRN Reason: Anxiety Miscellaneous Medication (Pharmacy To Dose) 1 each IVPB ONE PRN PRN Reason: Pharmacy to dose Stop: 08/15/18 03:10 Mometasone Furoate/Formoterol Fumar (Dulera 200 Mcg/5 Mcg Inhaler) 2 puff INH BID-RT [facility] Last Admin: 08/10/18 06:52 Dose: 2 puff Ondansetron HCl (Zofran) 4 mg IVP Q6H PRN PRN Reason: Nausea/Vomiting Last Admin: 08/09/18 14:19 Dose: 4 mg Prednisone (Prednisone) 40 mg PO DAILY [facility] Last Admin: 08/10/18 09:19 Dose: 40 mg Senna/Docusate Sodium (Senokot S) 2 tab PO BID PRN PRN Reason: Constipation Sodium Chloride (Flush - Normal Saline) 10 ml IVF Q12HR PRN PRN Reason: Saline Flush Last Admin: 08/06/18 09:04 Dose: 10 ml Sodium Chloride (Flush - Normal Saline) 10 ml IVF PRN PRN PRN Reason: Saline Flush Last Admin: 08/09/18 14:19 Dose: 10 ml Zolpidem Tartrate (Ambien) 5 mg PO HSPRN PRN PRN Reason: Insomnia Last Admin: 08/09/18 22:30 Dose: 5 mg
[2018-08-10] MEDS: Zolpidem Tartrate 5 MG TAB PO PRN (20:43)
[2018-08-11 03:56] VITALS: TEMP 97.6
[2018-08-11] MEDS: Levothyroxine Sodium 112 MCG TAB PO SCH (06:11)
[2018-08-11] MEDS: Mometasone/Formoterol 120 PUFF INHALER INH SCH (06:20)
[2018-08-11 06:54] LABS: Anion Gap 14 mmol/L (10-20); BUN (Urea Nitrogen) 16 mg/dL (9.8-20.1); Calc. Creatinine Clearance 63 mL/min (70-130); Calcium 9.4 mg/dL (7.8-10.44); Carbon Dioxide 33 mmol/L (23-31); Chloride 96 mmol/L (98-107); Estimated GFR-MDRD 80; Glucose 77 mg/dL (83-110); Potassium 4.2 mmol/L (3.5-5.1); Sodium 139 mmol/L (136-145)
[2018-08-11 08:01] VITALS: BP 136/66
[2018-08-11] MEDS: Citalopram 20 MG TAB PO SCH (09:14)
[2018-08-11] MEDS: Apixaban 2.5 MG TAB PO SCH (09:14)
[2018-08-11] MEDS: Dronedarone HCl 400 MG TAB PO SCH (09:14)
[2018-08-11] MEDS: guaiFENesin ER 600 MG TAB PO SCH (09:15)
[2018-08-11] MEDS: Famotidine 20 MG TAB PO SCH (09:15)
[2018-08-11] MEDS: predniSONE 20 MG TAB PO SCH (09:15)
--- NOTE | 2018-08-11 12:11 | DIS ---
DATE OF ADMISSION: 08/04/2018 DATE OF DISCHARGE: 08/11/2018 DISCHARGE DISPOSITION: Home. FOLLOWUP: Follow up with primary care physician, Dr. Atkinson in 1 week. DISCHARGE CONDITION: The patient was seen and examined on the day of discharge. Denies any new complaints. No chest pain, shortness of breath, palpitations reported. She is saturating 96% on room air. DISCHARGE MEDICATIONS: Prednisone taper. All other home medications were left unchanged. BRIEF HOSPITAL COURSE: The patient is a 78-year-old female with asthma/COPD, presented to the hospital with shortness of breath. Please refer to the history and physical for further details. The patient was admitted to the hospital with a diagnosis of sepsis secondary to pneumonia. She showed good improvement with antibiotics. Steroids were added for possible asthma/COPD exacerbation. She is currently on room air. She denies any wheezing. She appears stable for discharge. Influenza testing was negative. FINAL DIAGNOSES: 1. Sepsis secondary to pneumonia, questionable pneumococcal. 2. Acute hypoxic respiratory failure secondary to pneumonia with asthma/chronic obstructive pulmonary disease exacerbation. 3. Paroxysmal atrial fibrillation, on anticoagulation. 4. Hypertension. 5. Anxiety, depression. 6. Chronic kidney disease stage 3. 7. Hypothyroidism. 8. Chronic anemia. 9. Mild mitral and tricuspid regurgitation. DISCHARGE INSTRUCTIONS: Plan of care was discussed with the patient in detail. She stated understanding. Job ID: [id number]
== END 2018-08-11 10:27 | disposition home or self-care (01) | DRG 871 ==
LOC: ERS 18:05 → ERHOLD 21:21 → 2NO 08-05 13:57 → ONC 08-08 14:56
PROVIDERS: ADMIT Emergency Medicine; ATTEND Emergency Medicine
DX: A41.9 Sepsis, unspecified organism (principal); J18.0 Bronchopneumonia, unspecified organism; J96.01 Acute respiratory failure with hypoxia; E87.1 Hypo-osmolality and hyponatremia; J44.1 Chronic obstructive pulmonary disease with (acute) exacerbation; F32.9 Major depressive disorder, single episode, unspecified; E03.9 Hypothyroidism, unspecified; E86.0 Dehydration; I48.0 Paroxysmal atrial fibrillation; D64.9 Anemia, unspecified; I08.1 Rheumatic disorders of both mitral and tricuspid valves; F41.9 Anxiety disorder, unspecified; I12.9 Hypertensive chronic kidney disease with stage 1 through stage 4 chronic kidney disease, or unspecified chronic kidney disease; N18.3 Chronic kidney disease, stage 3 (moderate); Z79.01 Long term (current) use of anticoagulants; Z88.2 Allergy status to sulfonamides; Z87.891 Personal history of nicotine dependence
CPT/HCPCS: 36415; 71275; 80048; 81001; 82274; 83735; 84145; 85025; 87804; 93005; 93306; 94640; 94760; 96361; 96365; 96367; J0692; J1956; J2405; J3370; J7050; J7506; J7620; S0028

== ENCOUNTER 2021-08-22 15:08 | Inpatient (IN) | payer MEDICARE ==
[2021-08-22 19:42] VITALS: BMI 21.6
[2021-08-22] MEDS ORDERED: Acetaminophen 325 MG TAB PO PRN (22:19)
[2021-08-22] MEDS ORDERED: Acetaminophen 650 MG Suppository PR PRN (22:19)
[2021-08-22] MEDS ORDERED: Ondansetron PF 4 MG/2 ML Vial IVP PRN (22:19)
[2021-08-23] MEDS: Sodium Chloride 0.9% 1,000 ML IV SCH ×2 (00:23→10:55)
[2021-08-23 05:29] LABS: Anion Gap 10 mmol/L (10-20); BUN (Urea Nitrogen) 15 mg/dL (9.8-20.1); Calc. Creatinine Clearance 52 mL/min (70-130); Calcium 8.2 mg/dL (7.8-10.44); Carbon Dioxide 30 mmol/L (23-31); Chloride 92 mmol/L (98-107); Glucose 71 mg/dL (83-110); Sodium 128 mmol/L (136-145)
[2021-08-23 06:54] LABS: Band 9 % (5-11); Eosinophils 2 % (0-10); Hemoglobin 13.3 g/dL (12.0-16.0); Lymphocytes 45 % (21-51); MDiff Complete? YES; Mean Corpuscular HGB CONC 32.4 g/dL (32.0-36.0); Mean Corpuscular Hemoglobin 32.5 pg (27.0-31.0); Mean Platelet Volume 7.4 fL (7.4-10.4); Monocytes 14 % (0-10); Neutrophil 30 % (42-75); Platelet Count 219 thou/uL (130-400); RBC Distribution Width 12.3 % (11.5-14.5); Red Blood Cell (RBC) Count 4.11 mill/uL (4.20-5.40); White Blood Cell (WBC) Count 4.9 thou/uL (4.8-10.8)
[2021-08-23] MEDS: Enoxaparin Sodium 40 MG/0.4 ML SYRINGE SC SCH (09:45)
[2021-08-23 11:37] LABS: SARS-CoV-2 PCR by NAA DETECTED (NotDetected)
[2021-08-23] MEDS ORDERED: Pharmacy to Dose REMDESIVIR PO PRN (11:41)
[2021-08-23] MEDS ORDERED: Flecainide 50 MG TAB PO SCH (11:45)
[2021-08-23] MEDS: Dexamethasone 4 mg/ml Vial SLOW IVP SCH (12:05)
[2021-08-23] MEDS ORDERED: REMDESIVIR 200 MG in Sodium Chloride 0.9% 250 ML 210 ML IV SCH (12:15)
[2021-08-23] MEDS: Ondansetron ODT 4 MG TAB PO PRN (12:21)
[2021-08-23 12:41] LABS: Anion Gap 13 mmol/L (10-20); BUN (Urea Nitrogen) 11 mg/dL (9.8-20.1); Calc. Creatinine Clearance 53 mL/min (70-130); Calcium 8.5 mg/dL (7.8-10.44); Carbon Dioxide 29 mmol/L (23-31); Chloride 94 mmol/L (98-107); Glucose 80 mg/dL (83-110); Potassium 4.2 mmol/L (3.5-5.1); Sodium 132 mmol/L (136-145)
[2021-08-23] MEDS: ALPRAZolam 0.25 MG TAB PO PRN (20:38)
[2021-08-23] MEDS: Flecainide 50 MG TAB PO SCH (20:38)
[2021-08-24] MEDS ORDERED: diphenhydrAMINE 25 MG CAP PO SCH (00:15)
[2021-08-24] MEDS: Levothyroxine Sodium 125 MCG TAB PO SCH (05:34)
[2021-08-24 06:44] LABS: ALT (SGPT) 15 U/L (8-55); AST (SGOT) 34 U/L (5-34); Albumin 3.5 g/dL (3.4-4.8); Alkaline Phosphatase 53 U/L (40-110); Anion Gap 12 mmol/L (10-20); BUN (Urea Nitrogen) 10 mg/dL (9.8-20.1); Bilirubin, Total 0.3 mg/dL (0.2-1.2); Calc. Creatinine Clearance 58 mL/min (70-130); Calcium 8.6 mg/dL (7.8-10.44); Carbon Dioxide 32 mmol/L (23-31); Chloride 97 mmol/L (98-107); Globulin 2.6 g/dL (2.4-3.5); Glucose 83 mg/dL (83-110); Potassium 4.5 mmol/L (3.5-5.1); Protein, Total 6.1 g/dL (5.8-8.1); Sodium 136 mmol/L (136-145)
[2021-08-24] MEDS: Aspirin 81 mg Enteric Coated Tablet PO SCH (08:21)
[2021-08-24] MEDS: PARoxetine 20 MG TAB PO SCH (08:21)
[2021-08-24] MEDS: Flecainide 50 MG TAB PO SCH ×2 (08:21→21:03)
[2021-08-24] MEDS: Montelukast Sodium 10 mg Tablet PO SCH (08:21)
[2021-08-24] MEDS: Enoxaparin Sodium 40 MG/0.4 ML SYRINGE SC SCH (08:21)
[2021-08-24] MEDS: REMDESIVIR 100 MG in Sodium Chloride 0.9% 250 ML 230 ML IV SCH (09:03)
[2021-08-24] MEDS: Dexamethasone 4 mg/ml Vial SLOW IVP SCH (11:39)
[2021-08-24] MEDS: Ondansetron ODT 4 MG TAB PO PRN (12:32)
[2021-08-24] MEDS ORDERED: Methyl Salicylate/Menthol 85 GM TUBE TOP PRN ×2 (16:46→17:00)
[2021-08-24] MEDS: ALPRAZolam 0.25 MG TAB PO PRN (21:02)
[2021-08-25 06:04] LABS: ALT (SGPT) 19 U/L (8-55); AST (SGOT) 38 U/L (5-34); Albumin 3.6 g/dL (3.4-4.8); Anion Gap 11 mmol/L (10-20); BUN (Urea Nitrogen) 13 mg/dL (9.8-20.1); Bilirubin, Total 0.4 mg/dL (0.2-1.2); Calc. Creatinine Clearance 61 mL/min (70-130); Calcium 8.8 mg/dL (7.8-10.44); Carbon Dioxide 33 mmol/L (23-31); Chloride 94 mmol/L (98-107); Globulin 2.6 g/dL (2.4-3.5); Glucose 77 mg/dL (83-110); Potassium 4.3 mmol/L (3.5-5.1); Protein, Total 6.2 g/dL (5.8-8.1); Sodium 134 mmol/L (136-145)
[2021-08-25 06:10] LABS: Alkaline Phosphatase 53 U/L (40-110)
[2021-08-25] MEDS: Levothyroxine Sodium 125 MCG TAB PO SCH (06:40)
[2021-08-25] MEDS ORDERED: Polyethylene Glycol 3350 17 GM Packet PO PRN (07:44)
[2021-08-25] MEDS: REMDESIVIR 100 MG in Sodium Chloride 0.9% 250 ML 230 ML IV SCH (09:18)
[2021-08-25] MEDS: Docusate 100 MG CAP PO SCH ×2 (09:19→21:11)
[2021-08-25] MEDS: Aspirin 81 mg Enteric Coated Tablet PO SCH (09:19)
[2021-08-25] MEDS: Enoxaparin Sodium 40 MG/0.4 ML SYRINGE SC SCH (09:19)
[2021-08-25] MEDS: PARoxetine 20 MG TAB PO SCH (09:19)
[2021-08-25] MEDS: Flecainide 50 MG TAB PO SCH ×2 (09:19→21:11)
[2021-08-25] MEDS: Montelukast Sodium 10 mg Tablet PO SCH (09:19)
[2021-08-25] MEDS: Dexamethasone 4 mg/ml Vial SLOW IVP SCH (12:00)
[2021-08-25] MEDS: ALPRAZolam 0.25 MG TAB PO PRN (21:11)
[2021-08-26 05:11] LABS: ALT (SGPT) 29 U/L (8-55); AST (SGOT) 44 U/L (5-34); Albumin 3.8 g/dL (3.4-4.8); Alkaline Phosphatase 58 U/L (40-110); Anion Gap 14 mmol/L (10-20); BUN (Urea Nitrogen) 20 mg/dL (9.8-20.1); Bilirubin, Total 0.4 mg/dL (0.2-1.2); CRP (Inflammatory) 1.31 mg/dL (= or < 0.5); Calc. Creatinine Clearance 54 mL/min (70-130); Calcium 9.6 mg/dL (7.8-10.44); Carbon Dioxide 31 mmol/L (23-31); Chloride 94 mmol/L (98-107); Glucose 126 mg/dL (83-110); Potassium 4.4 mmol/L (3.5-5.1); Protein, Total 6.8 g/dL (5.8-8.1); Sodium 135 mmol/L (136-145)
[2021-08-26] MEDS: Levothyroxine Sodium 125 MCG TAB PO SCH (06:03)
[2021-08-26] MEDS: Aspirin 81 mg Enteric Coated Tablet PO SCH (08:46)
[2021-08-26] MEDS: Flecainide 50 MG TAB PO SCH ×2 (08:47→19:53)
[2021-08-26] MEDS: PARoxetine 20 MG TAB PO SCH (08:47)
[2021-08-26] MEDS: Enoxaparin Sodium 40 MG/0.4 ML SYRINGE SC SCH (08:47)
[2021-08-26] MEDS: Docusate 100 MG CAP PO SCH ×2 (08:47→19:53)
[2021-08-26] MEDS: Montelukast Sodium 10 mg Tablet PO SCH (08:47)
[2021-08-26] MEDS: REMDESIVIR 100 MG in Sodium Chloride 0.9% 250 ML 230 ML IV SCH (08:56)
[2021-08-26] MEDS: Dexamethasone 4 mg/ml Vial SLOW IVP SCH (12:03)
[2021-08-26] MEDS: ALPRAZolam 0.25 MG TAB PO PRN (19:53)
[2021-08-27] MEDS: Levothyroxine Sodium 125 MCG TAB PO SCH (05:07)
[2021-08-27 06:08] LABS: ALT (SGPT) 26 U/L (8-55); AST (SGOT) 31 U/L (5-34); Albumin 3.6 g/dL (3.4-4.8); Alkaline Phosphatase 50 U/L (40-110); Anion Gap 10 mmol/L (10-20); BUN (Urea Nitrogen) 18 mg/dL (9.8-20.1); Bilirubin, Total 0.5 mg/dL (0.2-1.2); Calc. Creatinine Clearance 56 mL/min (70-130); Calcium 9.2 mg/dL (7.8-10.44); Carbon Dioxide 34 mmol/L (23-31); Chloride 93 mmol/L (98-107); Globulin 2.6 g/dL (2.4-3.5); Glucose 113 mg/dL (83-110); Potassium 4.4 mmol/L (3.5-5.1); Protein, Total 6.2 g/dL (5.8-8.1); Sodium 133 mmol/L (136-145)
[2021-08-27] MEDS: Docusate 100 MG CAP PO SCH ×2 (08:23→22:09)
[2021-08-27] MEDS: PARoxetine 20 MG TAB PO SCH (08:23)
[2021-08-27] MEDS: Aspirin 81 mg Enteric Coated Tablet PO SCH (08:24)
[2021-08-27] MEDS: Montelukast Sodium 10 mg Tablet PO SCH (08:24)
[2021-08-27] MEDS: Cholecalciferol 1,000 UNITS (25 MCG) TAB PO SCH (08:24)
[2021-08-27] MEDS: Enoxaparin Sodium 40 MG/0.4 ML SYRINGE SC SCH (08:24)
[2021-08-27] MEDS: Flecainide 50 MG TAB PO SCH ×2 (08:24→20:37)
[2021-08-27] MEDS: REMDESIVIR 100 MG in Sodium Chloride 0.9% 250 ML 230 ML IV SCH (08:24)
[2021-08-27] MEDS: Dexamethasone 4 mg/ml Vial SLOW IVP SCH (11:24)
[2021-08-27] MEDS: ALPRAZolam 0.25 MG TAB PO PRN (23:23)
[2021-08-28] MEDS: Levothyroxine Sodium 125 MCG TAB PO SCH (04:26)
[2021-08-28] MEDS: Enoxaparin Sodium 40 MG/0.4 ML SYRINGE SC SCH (09:24)
[2021-08-28] MEDS: Aspirin 81 mg Enteric Coated Tablet PO SCH (09:24)
[2021-08-28] MEDS: PARoxetine 20 MG TAB PO SCH (09:24)
[2021-08-28] MEDS: Montelukast Sodium 10 mg Tablet PO SCH (09:24)
[2021-08-28] MEDS: Flecainide 50 MG TAB PO SCH (09:24)
[2021-08-28] MEDS: Cholecalciferol 1,000 UNITS (25 MCG) TAB PO SCH (09:24)
[2021-08-28] MEDS: Docusate 100 MG CAP PO SCH (09:25)
[2021-08-28 12:19] VITALS: BP 136/76; TEMP 98.5
[2021-08-29] MEDS ORDERED: Dexamethasone 4 MG TAB PO SCH (08:00)
== END 2021-08-28 13:55 | disposition home or self-care (01) | DRG 177 ==
LOC: 2NO 15:08 → OBSVTOIN 08-23 11:54 → 2SW 08-23 18:48
PROVIDERS: ADMIT Internal Medicine; ATTEND Family Medicine
PROC: 8E0ZXY6 Isolation (ICD-10-PCS; principal; 2021-08-23)
PROC: XW033E5 Introduction of Remdesivir Anti-infective into Peripheral Vein, Percutaneous Approach, New Technology Group 5 (ICD-10-PCS; 2021-08-23)
DX: U07.1 COVID-19 (principal); J96.01 Acute respiratory failure with hypoxia; G93.41 Metabolic encephalopathy; J12.82 Pneumonia due to coronavirus disease 2019; I48.92 Unspecified atrial flutter; E87.1 Hypo-osmolality and hyponatremia; J44.0 Chronic obstructive pulmonary disease with (acute) lower respiratory infection; E03.9 Hypothyroidism, unspecified; R29.6 Repeated falls; G20 Parkinson's disease; F41.9 Anxiety disorder, unspecified; F32.A Depression, unspecified; I95.1 Orthostatic hypotension; I48.0 Paroxysmal atrial fibrillation; Z88.2 Allergy status to sulfonamides; Z79.890 Hormone replacement therapy; Z79.82 Long term (current) use of aspirin; Z79.899 Other long term (current) drug therapy; Z79.51 Long term (current) use of inhaled steroids; Z87.891 Personal history of nicotine dependence
CPT/HCPCS: 36415; 70450; 80048; 80053; 84443; 85025; 86140; 93306; 96372; G0378; J0248; J1100; J1650; J7050; Q0162; U0003; U0005

== ENCOUNTER 2022-05-01 10:08 | Inpatient (IN) | payer MEDICARE ==
[2022-05-01 10:57] LABS: #Basophils 0.1 thou/uL (0.0-0.2); #Eosinphils 0.2 thou/uL (0.0-0.7); #Lymphocytes 0.7 thou/uL (1.20-3.40); #Monocytes 0.6 thou/uL (0.11-0.59); #Neutrophils 4.4 thou/uL (1.40-6.50); %Basophils 0.9 % (0.0-1.0); %Eosinophils 3.7 % (0.0-10.0); %Lymphocytes 12.2 % (21.0-51.0); %Monocytes 10.3 % (0.0-10.0); Hemoglobin 15.6 g/dL (12.0-16.0); Mean Corpuscular Hemoglobin 31.1 pg (27.0-31.0); Mean Platelet Volume 6.9 fL (7.4-10.4); Platelet Count 232 thou/uL (130-400); RBC Distribution Width 12.8 % (11.5-14.5); Red Blood Cell (RBC) Count 5.02 mill/uL (4.20-5.40)
[2022-05-01 11:16] LABS: ALT (SGPT) 16 U/L (8-55); AST (SGOT) 20 U/L (5-34); Albumin 4.3 g/dL (3.4-4.8); Alkaline Phosphatase 80 U/L (40-110); Anion Gap 11 mmol/L (10-20); BUN (Urea Nitrogen) 10 mg/dL (9.8-20.1); Bilirubin, Total 0.5 mg/dL (0.2-1.2); CK (CPK) 32 U/L (29-168); Calc. Creatinine Clearance 0 mL/min (70-130); Calcium 9.8 mg/dL (7.8-10.44); Carbon Dioxide 35 mmol/L (23-31); Chloride 94 mmol/L (98-107); Estimated GFR 88; Glucose 81 mg/dL (83-110); Lipase 19 U/L (8-78); Magnesium 1.9 mg/dL (1.6-2.6); Potassium 4.5 mmol/L (3.5-5.1); Protein, Total 7.3 g/dL (5.8-8.1); Sodium 135 mmol/L (136-145)
[2022-05-01] MEDS ORDERED: Ondansetron ODT 4 MG TAB PO PRN (14:11)
[2022-05-01] MEDS ORDERED: Acetaminophen 325 MG TAB PO PRN (14:11)
[2022-05-01] MEDS ORDERED: Nitroglycerin 0.4 MG TAB (25 Tab Bottle) SL PRN (14:13)
[2022-05-01 14:32] LABS: Troponin I Less than 0.010 ng/mL (< 0.028)
[2022-05-01] MEDS ORDERED: Pantoprazole 40 MG VIAL IVP SCH (14:45)
[2022-05-01 16:15] VITALS: BMI 17.4
[2022-05-01 18:03] LABS: Magnesium 1.8 mg/dL (1.6-2.6)
[2022-05-01 18:05] LABS: Bacteria/HPF None Seen HPF (None Seen); Bilirubin Negative (Negative); Blood, Urine Negative (Negative); Clarity Clear (Clear); Glucose, Urine (Dipstick) Normal (Negative); Ketone, Urine Negative (Negative); Leukocyte 25 Leu/uL (Negative); Nitrite Negative (Negative); Protein, Urine (Dipstick) Negative (Neg-Trace); RBC/HPF 0-3 HPF (0-3); Squamous Epithelial None Seen HPF (0-3); Urobilinogen Normal mg/dL (Less than 2); WBC/HPF 0-3 HPF (0-3); pH, Urine 7.5 (5.0-9.0)
[2022-05-01 18:08] LABS: Urine Culture Reflex Yes Yes
[2022-05-01 18:09] LABS: Troponin I Less than 0.010 ng/mL (< 0.028)
[2022-05-01] MEDS: ALPRAZolam 0.25 MG TAB PO PRN (21:23)
[2022-05-01] MEDS: Atorvastatin Calcium 40 MG TAB PO SCH (21:23)
[2022-05-01] MEDS: Flecainide 50 MG TAB PO SCH (21:23)
[2022-05-02 05:18] LABS: Anion Gap 12 mmol/L (10-20); BUN (Urea Nitrogen) 10 mg/dL (9.8-20.1); Calc. Creatinine Clearance 46 mL/min (70-130); Carbon Dioxide 33 mmol/L (23-31); Chloride 94 mmol/L (98-107); Cholesterol 158 mg/dl (< 200 Desired); Estimated GFR 81; Glucose 86 mg/dL (83-110); HDL Cholesterol 78 mg/dL (>60 Neg Risk); LDL Cholesterol, Calculated 70 mg/dL; Potassium 4.5 mmol/L (3.5-5.1); Sodium 134 mmol/L (136-145); Triglycerides 48 mg/dL (Less than 150)
[2022-05-02] MEDS: Levothyroxine Sodium 125 MCG TAB PO SCH (05:59)
[2022-05-02 06:18] LABS: Band 1 % (5-11); Eosinophils 8 % (0-10); Hemoglobin 13.4 g/dL (12.0-16.0); Lymphocytes 18 % (21-51); MDiff Complete? YES; Mean Corpuscular HGB CONC 31.4 g/dL (32.0-36.0); Mean Corpuscular Hemoglobin 31.4 pg (27.0-31.0); Mean Platelet Volume 7.3 fL (7.4-10.4); Monocytes 9 % (0-10); Neutrophil 64 % (42-75); Platelet Count 215 thou/uL (130-400); RBC Distribution Width 12.8 % (11.5-14.5); Red Blood Cell (RBC) Count 4.27 mill/uL (4.20-5.40); White Blood Cell (WBC) Count 5.5 thou/uL (4.8-10.8)
[2022-05-02] MEDS: Enoxaparin Sodium 40 MG/0.4 ML SYRINGE SC SCH (12:25)
[2022-05-02] MEDS: Montelukast Sodium 10 mg Tablet PO SCH (12:25)
[2022-05-02] MEDS: Cholecalciferol 1,000 UNITS (25 MCG) TAB PO SCH (12:25)
[2022-05-02] MEDS: Cyanocobalamin (Vitamin B-12) 1,000 MCG TAB PO SCH (12:25)
[2022-05-02] MEDS: Aspirin Chewable 81 MG TAB PO SCH (12:25)
[2022-05-02] MEDS: Flecainide 50 MG TAB PO SCH ×2 (12:26→20:36)
[2022-05-02] MEDS ORDERED: Iopamidol 370 76% 100 ML VIAL ONE (14:31)
[2022-05-02] MEDS: Atorvastatin Calcium 40 MG TAB PO SCH (20:36)
[2022-05-02] MEDS: ALPRAZolam 0.25 MG TAB PO PRN (20:40)
[2022-05-02] MEDS ORDERED: ALPRAZolam 0.5 MG TAB PO SCH (21:30)
[2022-05-03 05:20] LABS: #Basophils 0.1 thou/uL (0.0-0.2); #Eosinphils 0.3 thou/uL (0.0-0.7); #Lymphocytes 0.9 thou/uL (1.20-3.40); #Monocytes 0.7 thou/uL (0.11-0.59); #Neutrophils 3.2 thou/uL (1.40-6.50); %Basophils 1.5 % (0.0-1.0); %Eosinophils 5.4 % (0.0-10.0); %Lymphocytes 18.1 % (21.0-51.0); %Monocytes 13.8 % (0.0-10.0); %Neutrophils 61.3 % (42.0-75.0); Hemoglobin 14.1 g/dL (12.0-16.0); Mean Corpuscular HGB CONC 31.3 g/dL (32.0-36.0); Mean Corpuscular Hemoglobin 30.9 pg (27.0-31.0); Mean Corpuscular Volume 98.6 fL (78.0-98.0); Mean Platelet Volume 7.3 fL (7.4-10.4); Platelet Count 232 thou/uL (130-400); RBC Distribution Width 12.8 % (11.5-14.5); Red Blood Cell (RBC) Count 4.58 mill/uL (4.20-5.40); White Blood Cell (WBC) Count 5.1 thou/uL (4.8-10.8)
[2022-05-03 05:36] LABS: ALT (SGPT) 12 U/L (8-55); AST (SGOT) 15 U/L (5-34); Albumin 3.7 g/dL (3.4-4.8); Alkaline Phosphatase 76 U/L (40-110); Anion Gap 10 mmol/L (10-20); BUN (Urea Nitrogen) 7 mg/dL (9.8-20.1); Bilirubin, Total 0.6 mg/dL (0.2-1.2); Calc. Creatinine Clearance 51 mL/min (70-130); Calcium 8.8 mg/dL (7.8-10.44); Carbon Dioxide 33 mmol/L (23-31); Chloride 94 mmol/L (98-107); Estimated GFR 89; Globulin 2.7 g/dL (2.4-3.5); Glucose 89 mg/dL (83-110); Potassium 4.2 mmol/L (3.5-5.1); Protein, Total 6.4 g/dL (5.8-8.1); Sodium 133 mmol/L (136-145)
[2022-05-03] MEDS: Levothyroxine Sodium 125 MCG TAB PO SCH (06:03)
[2022-05-03] MEDS ORDERED: Fluticasone Propionate Nasal Spray 16 gm Bottle NASAL SCH (09:00)
[2022-05-03] MEDS: Aspirin Chewable 81 MG TAB PO SCH (12:35)
[2022-05-03] MEDS: Cyanocobalamin (Vitamin B-12) 1,000 MCG TAB PO SCH (12:35)
[2022-05-03] MEDS: Cholecalciferol 1,000 UNITS (25 MCG) TAB PO SCH (12:39)
[2022-05-03] MEDS: Flecainide 50 MG TAB PO SCH ×2 (12:39→20:00)
[2022-05-03] MEDS: Enoxaparin Sodium 40 MG/0.4 ML SYRINGE SC SCH (12:39)
[2022-05-03] MEDS: Montelukast Sodium 10 mg Tablet PO SCH (12:39)
[2022-05-03] MEDS: cefTRIAXone\\ROCEPHIN 1 GM in Sodium Chloride 0.9% 100 ML IVPB SCH (12:40)
[2022-05-03] MEDS: Atorvastatin Calcium 40 MG TAB PO SCH (20:00)
[2022-05-03] MEDS: ALPRAZolam 0.25 MG TAB PO PRN (20:04)
[2022-05-03] MEDS: Fluticasone Propionate Nasal Spray 16 gm Bottle NASAL SCH (20:07)
[2022-05-04] MEDS: Levothyroxine Sodium 125 MCG TAB PO SCH (06:33)
[2022-05-04] MEDS: Aspirin Chewable 81 MG TAB PO SCH (08:03)
[2022-05-04] MEDS: Cholecalciferol 1,000 UNITS (25 MCG) TAB PO SCH (08:03)
[2022-05-04] MEDS: Flecainide 50 MG TAB PO SCH ×2 (08:06→21:25)
[2022-05-04] MEDS: Enoxaparin Sodium 40 MG/0.4 ML SYRINGE SC SCH (08:06)
[2022-05-04] MEDS: Montelukast Sodium 10 mg Tablet PO SCH (08:07)
[2022-05-04] MEDS: Fluticasone Propionate Nasal Spray 16 gm Bottle NASAL SCH ×2 (08:07→21:25)
[2022-05-04] MEDS: Cyanocobalamin (Vitamin B-12) 1,000 MCG TAB PO SCH (08:08)
[2022-05-04] MEDS: cefTRIAXone\\ROCEPHIN 1 GM in Sodium Chloride 0.9% 100 ML IVPB SCH (12:56)
[2022-05-04] MEDS: Atorvastatin Calcium 40 MG TAB PO SCH (21:25)
[2022-05-04] MEDS: ALPRAZolam 0.25 MG TAB PO PRN (21:28)
[2022-05-05] MEDS: Levothyroxine Sodium 125 MCG TAB PO SCH (05:09)
[2022-05-05 05:12] LABS: ALT (SGPT) 12 U/L (8-55); AST (SGOT) 16 U/L (5-34); Albumin 3.4 g/dL (3.4-4.8); Alkaline Phosphatase 66 U/L (40-110); Anion Gap 10 mmol/L (10-20); BUN (Urea Nitrogen) 12 mg/dL (9.8-20.1); Bilirubin, Total 0.4 mg/dL (0.2-1.2); Calc. Creatinine Clearance 51 mL/min (70-130); Carbon Dioxide 31 mmol/L (23-31); Chloride 98 mmol/L (98-107); Estimated GFR 89; Globulin 2.5 g/dL (2.4-3.5); Glucose 85 mg/dL (83-110); Potassium 4.5 mmol/L (3.5-5.1); Protein, Total 5.9 g/dL (5.8-8.1); Sodium 134 mmol/L (136-145)
[2022-05-05 06:09] LABS: Eosinophils 7 % (0-10); Hemoglobin 13.7 g/dL (12.0-16.0); Hypochromia SLIGHT = 6-15 cells (100X) (0-5/hpf); Lymphocytes 17 % (21-51); MDiff Complete? YES; Macrocytosis SLIGHT = 6-15 cells (100X) (0-5/hpf); Mean Corpuscular Hemoglobin 31.2 pg (27.0-31.0); Mean Platelet Volume 7.5 fL (7.4-10.4); Monocytes 13 % (0-10); Neutrophil 61 % (42-75); Ovalocytes SLIGHT = 2-5 cells (100X) (0-1/hpf); Platelet Count 238 thou/uL (130-400); Platelet Morphology Comment Appears Adequate; Polychromasia SLIGHT = 2-3 cells (100X) (0-2/hpf); RBC Distribution Width 12.8 % (11.5-14.5); Red Blood Cell (RBC) Count 4.37 mill/uL (4.20-5.40); White Blood Cell (WBC) Count 5.7 thou/uL (4.8-10.8)
[2022-05-05] MEDS ORDERED: Heparin 10,000 UNITS/ 10 ML VIAL ONE (09:17)
[2022-05-05] MEDS: Cyanocobalamin (Vitamin B-12) 1,000 MCG TAB PO SCH (11:13)
[2022-05-05] MEDS: Cholecalciferol 1,000 UNITS (25 MCG) TAB PO SCH (11:14)
[2022-05-05] MEDS: Montelukast Sodium 10 mg Tablet PO SCH (11:14)
[2022-05-05] MEDS: Aspirin Chewable 81 MG TAB PO SCH (11:14)
[2022-05-05] MEDS: Flecainide 50 MG TAB PO SCH (11:14)
[2022-05-05] MEDS: Enoxaparin Sodium 40 MG/0.4 ML SYRINGE SC SCH (11:16)
[2022-05-05] MEDS: cefTRIAXone\\ROCEPHIN 1 GM in Sodium Chloride 0.9% 100 ML IVPB SCH (11:17)
[2022-05-05] MEDS: Fluticasone Propionate Nasal Spray 16 gm Bottle NASAL SCH (11:17)
[2022-05-05 12:04] VITALS: BP 157/93; TEMP 97.3
== END 2022-05-05 15:40 | disposition home or self-care (01) | DRG 155 ==
LOC: ERS 10:08 → ERHOLD 12:48 → 2SW 15:28 → OBSVTOIN 05-03 11:24
PROVIDERS: ADMIT Internal Medicine; ATTEND Internal Medicine
DX: R09.82 Postnasal drip (principal); Z68.1 Body mass index [BMI] 19.9 or less, adult; K21.9 Gastro-esophageal reflux disease without esophagitis; Z20.822 Contact with and (suspected) exposure to COVID-19; I48.0 Paroxysmal atrial fibrillation; I10 Essential (primary) hypertension; E03.9 Hypothyroidism, unspecified; J44.9 Chronic obstructive pulmonary disease, unspecified; F41.9 Anxiety disorder, unspecified; F32.A Depression, unspecified; R29.6 Repeated falls; I49.1 Atrial premature depolarization; R09.02 Hypoxemia; R63.6 Underweight; Z88.2 Allergy status to sulfonamides; Z79.899 Other long term (current) drug therapy; Z79.890 Hormone replacement therapy; Z79.82 Long term (current) use of aspirin; Z91.81 History of falling; Z98.49 Cataract extraction status, unspecified eye; Z80.0 Family history of malignant neoplasm of digestive organs; Z87.891 Personal history of nicotine dependence
CPT/HCPCS: 36415; 71045; 71275; 74177; 78452; 80048; 80053; 80061; 81001; 82550; 83690; 83735; 83880; 84100; 84443; 84484; 85025; 87086; 93005; 93017; 94760; 96372; 96374; A9500; C9113; G0378; J0696; J1644; J1650; J3490; Q9967; U0003; U0005

== ENCOUNTER 2022-08-03 12:39 | Outpatient (CLI) | payer MEDICARE | END 2022-08-03 12:40 | disposition home or self-care (01) | LOC: LABBT 12:39 | PROVIDERS: ATTEND Internal Medicine Cardiovascular Disease | DX: Z01.810 Encounter for preprocedural cardiovascular examination (principal); I48.0 Paroxysmal atrial fibrillation | CPT/HCPCS: 80053; 81003; 85027; 85610; 85730; 93005; 93010 ==

== ENCOUNTER 2022-08-03 12:45 | Inpatient (IN) | payer MEDICARE ==
[2022-08-03 13:38] LABS: Bilirubin Neg (Negative); Blood, Urine 10 (Negative); Glucose, Urine (Dipstick) Normal (Negative); Ketone, Urine Negative (Negative); Leukocyte 25 (Negative); Nitrite Negative (Negative); Protein, Urine (Dipstick) 30 mg/dl (Neg-Trace)
[2022-08-03 13:39] LABS: Clarity Hazy (Clear)
[2022-08-03 13:47] LABS: Hemoglobin 15.1 g/dL (12.0-15.5); Mean Corpuscular HGB CONC 32.6 g/dL (32.0-36.0); Mean Corpuscular Hemoglobin 31.2 pg (27.0-33.0); Mean Corpuscular Volume 95.7 fl (81.6-98.3); Mean Platelet Volume 9.7 fl (7.4-10.4); Platelet Count 306 10x3/uL (150-450); RBC Distribution Width 14.5 % (11.5-14.5); Red Blood Cell (RBC) Count 4.84 10x6/uL (3.90-5.03); White Blood Cell (WBC) Count 6.8 10x3/uL (3.5-10.5)
[2022-08-03 13:54] LABS: PTT 25.9 sec (22.0-33.0); Prothrombin Time 10.4 sec (9.5-12.1)
[2022-08-03 13:58] LABS: ALT (SGPT) 17 U/L (8-55); AST (SGOT) 28 U/L (5-34); Albumin 4.8 g/dL (3.4-4.8); Alkaline Phosphatase 82 U/L (40-110); Anion Gap 13 mmol/L (10-20); BUN (Urea Nitrogen) 10 mg/dL (9.8-20.1); Bilirubin, Total 0.6 mg/dL (0.2-1.2); Calc. Creatinine Clearance 0 mL/min (70-130); Calcium 9.9 mg/dL (7.8-10.44); Carbon Dioxide 35 mmol/L (23-31); Chloride 92 mmol/L (98-107); Estimated GFR 72; Globulin 3.2 g/dL (2.4-3.5); Glucose 109 mg/dL (83-110); Potassium 3.8 mmol/L (3.5-5.1); Sodium 136 mmol/L (136-145)
[2022-08-07 10:31] VITALS: BMI 19.3
[2022-08-08] MEDS ORDERED: FENTANYL 50 MCG/ML 1 ML VIAL ONE (13:14)
[2022-08-08] MEDS ORDERED: SUGAMMADEX SODIUM 200 MG/2 ML VIAL ONE (13:14)
[2022-08-08] MEDS ORDERED: CEFAZOLIN 1 GM VIAL ONE (13:34)
[2022-08-08] MEDS ORDERED: Heparin 10,000 UNITS/ 10 ML VIAL ONE (13:34)
[2022-08-08] MEDS ORDERED: Lidocaine 1% PF 5 ML VIAL ONE (13:51)
[2022-08-08] MEDS ORDERED: Dexamethasone 20 MG/5 ML VIAL ONE (13:51)
[2022-08-08] MEDS ORDERED: PROPOFOL 200 MG/20 ML VIAL ONE (13:51)
[2022-08-08] MEDS ORDERED: Ondansetron PF 4 MG/2 ML Vial ONE (13:51)
[2022-08-08] MEDS ORDERED: Rocuronium Bromide 10 MG/ML (10ML VIAL) ONE (13:51)
== END 2022-08-08 16:58 | disposition home or self-care (01) | DRG 310 ==
LOC: SURG A 08-08 09:52
PROVIDERS: ADMIT Internal Medicine Cardiovascular Disease; ATTEND Internal Medicine Cardiovascular Disease
PROC: B246ZZ4 Ultrasonography of Right and Left Heart, Transesophageal (ICD-10-PCS; principal; 2022-08-08)
DX: I48.91 Unspecified atrial fibrillation (principal); Z79.01 Long term (current) use of anticoagulants; I34.0 Nonrheumatic mitral (valve) insufficiency; Z53.8 Procedure and treatment not carried out for other reasons; Z88.2 Allergy status to sulfonamides; Z88.7 Allergy status to serum and vaccine
CPT/HCPCS: 36415; 80053; 81003; 85027; 85610; 85730; 86850; 86900; 86901; 93312; J0690; J1100; J1644; J2405; J2704; J3010

== ENCOUNTER 2022-11-07 06:41 | Day surgery (SDC) | payer MEDICARE ==
[2022-11-06 14:48] VITALS: BMI 17.3
[2022-11-07 08:08] LABS: Anion Gap 12 mmol/L (10-20); BUN (Urea Nitrogen) 11 mg/dL (9.8-20.1); Calc. Creatinine Clearance 42 mL/min (70-130); Calcium 9.7 mg/dL (7.8-10.44); Carbon Dioxide 33 mmol/L (23-31); Chloride 97 mmol/L (98-107); Estimated GFR 76; Glucose 71 mg/dL (83-110); Potassium 3.9 mmol/L (3.5-5.1); Sodium 138 mmol/L (136-145)
[2022-11-07] MEDS ORDERED: PROPOFOL 200 MG/20 ML VIAL ONE (08:11)
[2022-11-07] MEDS ORDERED: Lidocaine 1% PF 5 ML VIAL ONE (08:11)
[2022-11-07 08:35] LABS: Hemoglobin 12.6 g/dL (12.0-16.0); Mean Corpuscular HGB CONC 31.7 g/dL (32.0-36.0); Mean Platelet Volume 7.5 fL (7.4-10.4); Platelet Count 249 10x3/uL (130-400); RBC Distribution Width 12.5 % (11.5-14.5); Red Blood Cell (RBC) Count 3.95 mill/uL (4.20-5.40); White Blood Cell (WBC) Count 6.1 10x3/uL (4.8-10.8)
== END 2022-11-07 09:17 | disposition home or self-care (01) ==
LOC: SDC 06:41
PROVIDERS: ATTEND Internal Medicine Cardiovascular Disease
PROC: B246ZZ4 Ultrasonography of Right and Left Heart, Transesophageal (ICD-10-PCS; principal; 2022-11-07)
DX: I48.0 Paroxysmal atrial fibrillation (principal); I07.1 Rheumatic tricuspid insufficiency; I87.2 Venous insufficiency (chronic) (peripheral); J44.9 Chronic obstructive pulmonary disease, unspecified; E78.5 Hyperlipidemia, unspecified; E03.9 Hypothyroidism, unspecified; I10 Essential (primary) hypertension; Z87.891 Personal history of nicotine dependence; Z79.02 Long term (current) use of antithrombotics/antiplatelets; Z79.82 Long term (current) use of aspirin; Z79.890 Hormone replacement therapy; Z79.899 Other long term (current) drug therapy; Z88.2 Allergy status to sulfonamides; Z88.7 Allergy status to serum and vaccine; Z95.818 Presence of other cardiac implants and grafts
CPT/HCPCS: 80048; 85027; 93312

== ENCOUNTER 2023-05-30 12:26 | Inpatient (IN) | payer MEDICARE ==
[2023-05-30 14:44] LABS: #Eosinphils 0.1 thou/uL (0.0-0.7); #Monocytes 0.6 thou/uL (0.11-0.59); #Neutrophils 4.3 thou/uL (1.40-6.50); %Basophils 0.5 % (0.0-1.0); %Eosinophils 1.1 % (0.0-10.0); %Lymphocytes 9.6 % (21.0-51.0); %Monocytes 11.6 % (0.0-10.0); Hematocrit 47.6 % (36.0-47.0); Hemoglobin 15.3 g/dL (12.0-16.0); Mean Corpuscular HGB CONC 32.1 g/dL (32.0-36.0); Mean Corpuscular Hemoglobin 32.2 pg (27.0-31.0); Mean Corpuscular Volume 100.2 fl (78.0-98.0); Mean Platelet Volume 9.4 fL (7.4-10.4); Platelet Count 255 10x3/uL (130-400); RBC Distribution Width 15.1 % (11.5-14.5); Red Blood Cell (RBC) Count 4.75 mill/uL (4.20-5.40); White Blood Cell (WBC) Count 5.5 10x3/uL (4.8-10.8)
[2023-05-30 15:08] LABS: ALT (SGPT) 23 U/L (8-55); AST (SGOT) 25 U/L (5-34); Albumin 4.4 g/dL (3.4-4.8); Alkaline Phosphatase 99 U/L (40-110); Anion Gap 11 mmol/L (10-20); BUN (Urea Nitrogen) 9 mg/dL (9.8-20.1); Bilirubin, Total 0.5 mg/dL (0.2-1.2); Calc. Creatinine Clearance 0 mL/min (70-130); Calcium 9.5 mg/dL (7.8-10.44); Carbon Dioxide 37 mmol/L (23-31); Chloride 90 mmol/L (98-107); Estimated GFR 71; Globulin 2.4 g/dL (2.4-3.5); Glucose 106 mg/dL (83-110); Potassium 4.4 mmol/L (3.5-5.1); Protein, Total 6.8 g/dL (5.8-8.1); Sodium 134 mmol/L (136-145)
[2023-05-30 15:30] LABS: Troponin I Less than 0.010 ng/mL (< 0.028)
[2023-05-30] MEDS ORDERED: predniSONE 20 MG TAB ONE (15:41)
[2023-05-30] MEDS ORDERED: Ipratropium/Albuterol 3 ML NEB NEB PRN (16:45)
[2023-05-30] MEDS ORDERED: Ondansetron ODT 4 MG TAB PO PRN (16:45)
[2023-05-30] MEDS ORDERED: cefTRIAXone\\ROCEPHIN 1 GM in Sodium Chloride 0.9% 100 ML IVPB SCH (16:45)
[2023-05-30] MEDS ORDERED: Acetaminophen 325 MG TAB PO PRN (16:45)
[2023-05-30] MEDS ORDERED: Furosemide 40 MG/4 ML VIAL ONE (17:34)
[2023-05-30] MEDS ORDERED: Aspirin Chewable 81 MG TAB ONE (17:34)
[2023-05-30 18:09] LABS: Bacteria/HPF None Seen HPF (None Seen); Bilirubin Negative (Negative); Blood, Urine Negative (Negative); CAUTI Indications for Culture Dysuria,urgency,freq; Clarity Clear (Clear); Glucose, Urine (Dipstick) Normal (Negative); Ketone, Urine Negative (Negative); Leukocyte Negative Leu/uL (Negative); Nitrite Negative (Negative); Protein, Urine (Dipstick) 30 mg/dL (Neg-Trace); RBC/HPF 0-3 HPF (0-3); Specific Gravity, Urine 1.026 (1.002-1.036); Squamous Epithelial 0-3 HPF (0-3); Urobilinogen Normal mg/dL (Less than 2); WBC/HPF 0-3 HPF (0-3)
[2023-05-30 18:18] LABS: Urine Culture Reflex No No
[2023-05-30] MEDS ORDERED: Doxycycline 100 MG in Sodium Chloride 0.9% 100 ML IVPB SCH (21:00)
[2023-05-30 21:21] VITALS: BMI 17.4
[2023-05-31 04:58] LABS: #Monocytes 0.2 thou/uL (0.11-0.59); #Neutrophils 1.9 thou/uL (1.40-6.50); %Basophils 0.4 % (0.0-1.0); %Lymphocytes 15.8 % (21.0-51.0); %Monocytes 6.6 % (0.0-10.0); %Neutrophils 77.2 % (42.0-75.0); Hematocrit 44.6 % (36.0-47.0); Hemoglobin 14.6 g/dL (12.0-16.0); Mean Corpuscular HGB CONC 32.7 g/dL (32.0-36.0); Mean Corpuscular Volume 97.8 fl (78.0-98.0); Mean Platelet Volume 9.3 fL (7.4-10.4); Platelet Count 262 10x3/uL (130-400); RBC Distribution Width 14.6 % (11.5-14.5); Red Blood Cell (RBC) Count 4.56 mill/uL (4.20-5.40); White Blood Cell (WBC) Count 2.4 10x3/uL (4.8-10.8)
[2023-05-31 05:31] LABS: Anion Gap 15 mmol/L (10-20); BUN (Urea Nitrogen) 10 mg/dL (9.8-20.1); Calc. Creatinine Clearance 48 mL/min (70-130); Calcium 8.7 mg/dL (7.8-10.44); Carbon Dioxide 35 mmol/L (23-31); Chloride 89 mmol/L (98-107); Estimated GFR 86; Glucose 134 mg/dL (83-110); Potassium 4.6 mmol/L (3.5-5.1); Sodium 134 mmol/L (136-145)
[2023-05-31] MEDS ORDERED: Carvedilol 3.125 MG TAB PO SCH (08:00)
[2023-05-31] MEDS: Famotidine 20 MG TAB PO SCH (09:20)
[2023-05-31] MEDS: predniSONE 20 MG TAB PO SCH (09:20)
[2023-05-31] MEDS: Doxycycline 100 MG CAP PO SCH ×2 (09:20→20:41)
[2023-05-31] MEDS: Furosemide 20 MG/2 ML VIAL SLOW IVP SCH (09:20)
[2023-05-31 14:06] LABS: Free T4 (Free Thyroxine) 0.93 ng/dL (0.70-1.48)
[2023-05-31 15:14] LABS: Magnesium 1.7 mg/dL (1.6-2.6)
[2023-05-31] MEDS ORDERED: Spironolactone 25 MG TAB PO SCH (16:58)
[2023-05-31] MEDS: Atorvastatin Calcium 10 MG TAB PO SCH (20:41)
[2023-05-31] MEDS: Flecainide 50 MG TAB PO SCH (20:41)
[2023-05-31] MEDS: dilTIAZem CD 120 MG CAP PO SCH (20:41)
[2023-06-01] MEDS: predniSONE 20 MG TAB PO SCH (08:40)
[2023-06-01] MEDS: Flecainide 50 MG TAB PO SCH ×2 (08:40→20:19)
[2023-06-01] MEDS: dilTIAZem CD 120 MG CAP PO SCH ×2 (08:40→20:19)
[2023-06-01] MEDS: Famotidine 20 MG TAB PO SCH (08:40)
[2023-06-01] MEDS: Doxycycline 100 MG CAP PO SCH ×2 (08:40→20:19)
[2023-06-01] MEDS: Aspirin 81 mg Enteric Coated Tablet PO SCH (08:41)
[2023-06-01] MEDS: Furosemide 20 MG/2 ML VIAL SLOW IVP SCH (08:41)
[2023-06-01] MEDS: Spironolactone 25 MG TAB PO SCH (08:41)
[2023-06-01] MEDS: Atorvastatin Calcium 10 MG TAB PO SCH (20:19)
[2023-06-01] MEDS: ALPRAZolam 0.5 MG TAB PO SCH (21:15)
[2023-06-02] MEDS ORDERED: Levothyroxine Sodium 125 MCG TAB PO SCH (07:30)
[2023-06-02] MEDS: PARoxetine 20 MG TAB PO SCH (09:14)
[2023-06-02] MEDS: Aspirin 81 mg Enteric Coated Tablet PO SCH (09:14)
[2023-06-02] MEDS: Doxycycline 100 MG CAP PO SCH ×2 (09:14→20:06)
[2023-06-02] MEDS: Montelukast Sodium 10 mg Tablet PO SCH (09:14)
[2023-06-02] MEDS: Flecainide 50 MG TAB PO SCH ×2 (09:14→20:06)
[2023-06-02] MEDS: predniSONE 20 MG TAB PO SCH (09:15)
[2023-06-02] MEDS: dilTIAZem CD 120 MG CAP PO SCH ×2 (09:15→20:06)
[2023-06-02] MEDS: Spironolactone 25 MG TAB PO SCH (09:15)
[2023-06-02] MEDS: Famotidine 20 MG TAB PO SCH (09:15)
[2023-06-02] MEDS: Atorvastatin Calcium 10 MG TAB PO SCH (20:06)
[2023-06-02] MEDS: ALPRAZolam 0.5 MG TAB PO SCH (20:06)
[2023-06-03] MEDS ORDERED: Levothyroxine Sodium 125 MCG TAB PO SCH (06:00)
[2023-06-03 07:00] LABS: Anion Gap 13 mmol/L (10-20); BUN (Urea Nitrogen) 16 mg/dL (9.8-20.1); Calc. Creatinine Clearance 47 mL/min (70-130); Carbon Dioxide 36 mmol/L (23-31); Chloride 88 mmol/L (98-107); Potassium 4.4 mmol/L (3.5-5.1); Sodium 133 mmol/L (136-145)
[2023-06-03 07:01] LABS: Calcium 9.2 mg/dL (7.8-10.44); Estimated GFR 86; Glucose 66 mg/dL (83-110)
[2023-06-03] MEDS: Doxycycline 100 MG CAP PO SCH (08:49)
[2023-06-03] MEDS: dilTIAZem CD 120 MG CAP PO SCH (08:49)
[2023-06-03] MEDS: Flecainide 50 MG TAB PO SCH (08:50)
[2023-06-03] MEDS: Famotidine 20 MG TAB PO SCH (08:50)
[2023-06-03] MEDS: predniSONE 20 MG TAB PO SCH (08:50)
[2023-06-03] MEDS: Spironolactone 25 MG TAB PO SCH (08:50)
[2023-06-03] MEDS: Montelukast Sodium 10 mg Tablet PO SCH (08:50)
[2023-06-03] MEDS: PARoxetine 20 MG TAB PO SCH (08:50)
[2023-06-03] MEDS: Aspirin 81 mg Enteric Coated Tablet PO SCH (08:50)
[2023-06-03] MEDS ORDERED: Furosemide 20 MG TAB PO SCH (09:00)
[2023-06-03] MEDS ORDERED: Glucagon 1 MG/ML KIT IM PRN (11:30)
[2023-06-03] MEDS ORDERED: Dextrose 5% in Water 1,000 ML IV PRN (11:30)
[2023-06-03] MEDS ORDERED: Dextrose 50% Abboject 50 ML SYRINGE IVP PRN (11:30)
[2023-06-03 14:09] VITALS: BP 120/58; TEMP 98
[2023-06-04] MEDS ORDERED: Clopidogrel Bisulfate 75 MG TAB PO SCH (09:00)
[2023-06-04] MEDS ORDERED: Empagliflozin 10 MG TAB PO SCH (09:00)
== END 2023-06-03 16:00 | disposition home or self-care (01) | DRG 291 ==
LOC: ERS 12:26 → 2NO 16:44
PROVIDERS: ADMIT Internal Medicine; ATTEND Family Medicine
DX: I11.0 Hypertensive heart disease with heart failure (principal); I50.33 Acute on chronic diastolic (congestive) heart failure; J96.01 Acute respiratory failure with hypoxia; J44.1 Chronic obstructive pulmonary disease with (acute) exacerbation; I47.10 Supraventricular tachycardia, unspecified; E03.9 Hypothyroidism, unspecified; I48.0 Paroxysmal atrial fibrillation; R51.9 Headache, unspecified; F41.9 Anxiety disorder, unspecified; Z87.891 Personal history of nicotine dependence; Z88.2 Allergy status to sulfonamides; Z98.890 Other specified postprocedural states; Z88.7 Allergy status to serum and vaccine; Z79.51 Long term (current) use of inhaled steroids; Z79.82 Long term (current) use of aspirin; Z79.899 Other long term (current) drug therapy
CPT/HCPCS: 36415; 70450; 71045; 71046; 76536; 80048; 80053; 81001; 83735; 83880; 84439; 84443; 84481; 84484; 85025; 93005; 93010; 93306; 96374; 97139; J1650; J1940; J7512

== ENCOUNTER 2025-01-30 18:58 | Inpatient (IN) | payer MEDICARE ==
[2025-01-30 19:33] LABS: Actual Bicarbonate (HCO3v) 31.5 mEq/L (22-28); Base Excess 2.8 mEq/L (-2.0 to +3.0); Calcium, Ionized (venous) 1.07 mmol/L (1.16-1.32); Chloride (VBG) 93 mmol/L (98-106); Hematocrit-VBG 43 % (36.0-47.0); Hemoglobin (Hb) 14.6 g/dL (11.7-16.1); Potassium (VBG) 4.23 mmol/L (3.70-5.30); Sodium 138 mmol/L (133-146)
[2025-01-30] MEDS ORDERED: cefTRIAXone (ROCEPHIN) 2 GM VIAL ONE (19:33)
[2025-01-30 19:34] LABS: #Basophils Less than 0.03 10x3/uL (0.0-0.2); #Eosinophils Less than 0.03 10x3/uL (0.0-0.7); #Monocytes 0.23 10x3/uL (0.11-0.59); #Neutrophils 4.75 10x3/uL (1.40-6.50); %Basophils 0.3 % (0.0-1.0); %Eosinophils 0.0 % (0.0-10.0); %Lymphocytes 18.5 % (21.0-51.0); %Monocytes 3.7 % (0.0-10.0); %Neutrophils 77.0 % (42.0-75.0); Hematocrit 41.9 % (36.0-47.0); Hemoglobin 13.0 g/dL (12.0-16.0); Mean Corpuscular Hemoglobin 28.3 pg (27.0-31.0); Mean Corpuscular Volume 91.1 fL (78.0-98.0); Platelet Count 266 10x3/uL (130-400); Red Blood Cell (RBC) Count 4.60 mill/uL (4.20-5.40); White Blood Cell (WBC) Count 6.17 10x3/uL (4.8-10.8)
[2025-01-30 19:52] LABS: ALT (SGPT) 15 U/L (Less than 34); AST (SGOT) 23 U/L (11-34); Albumin 3.5 g/dL (3.1-4.5); Alkaline Phosphatase 68 U/L (40-110); Anion Gap 18 mmol/L (10-20); BUN (Urea Nitrogen) 15 mg/dL (9.8-20.1); Bilirubin, Total 0.5 mg/dL (0.3-1.2); Calc. Creatinine Clearance 0 mL/min (70-130); Calcium 8.9 mg/dL (7.8-10.44); Carbon Dioxide 29 mmol/L (23-31); Chloride 94 mmol/L (98-107); Globulin 3.3 g/dL (2.4-3.5); Glucose 171 mg/dL (83-110); Potassium 4.1 mmol/L (3.5-5.1); Sodium 137 mmol/L (136-145)
[2025-01-30 20:15] LABS: Bacteria/HPF None Seen HPF (None Seen); CAUTI Indications for Culture Alt mental st,lethar; Glucose, Urine (Dipstick) Normal (Negative); Leukocyte Negative Leu/uL (Negative); Protein, Urine (Dipstick) 10 mg/dL (Neg-Trace); RBC/HPF 0-3 HPF (0-3); Specific Gravity, Urine 1.014 (1.002-1.036); WBC/HPF 0-3 HPF (0-3)
[2025-01-30 20:18] LABS: Urine Culture Reflex No No
[2025-01-30] MEDS ORDERED: Furosemide 20 MG (2 mL) VIAL ONE (20:56)
[2025-01-30 21:18] LABS: Troponin I 0.018 ng/mL (< 0.028)
[2025-01-30] MEDS ORDERED: Ondansetron PF 4 MG/2 ML Vial IVP PRN (21:30)
[2025-01-30] MEDS ORDERED: Albuterol 2.5 MG (3 mL) NEB NEB PRN (21:39)
[2025-01-30 21:47] LABS: Actual Bicarbonate (HCO3a) 30.0 mEq/L (22-28); Analyzer IN Cardio ER; Base Excess (BEa) -0.7 mEq/L (-2.0 to +3.0); Calcium, Ionized (arterial) 1.12 mmol/L (1.12-1.30); Hematocrit-ABG 40 % (36.0-47.0); Hemoglobin (Hb) 13.7 g/dL (12.0-16.0); O2 Tension (PaO2), arterial 70.2 mmHg (> 60.0); Potassium - ABG Lab 3.81 mmol/L (3.70-5.30)
[2025-01-30 21:49] LABS: CO2 Tension 82.1 mmHg (35.0-45.0); pH, Arterial 7.180 (7.35-7.45)
[2025-01-30 22:33] VITALS: BMI 20.4
[2025-01-30] MEDS: Vancomycin (BATCH) 1.25 GM Premix BAG IVPB SCH (22:34)
[2025-01-30 23:37] LABS: Actual Bicarbonate (HCO3a) 27.1 mEq/L (22-28); Analyzer IN Cardio ER; Base Excess (BEa) -1.8 mEq/L (-2.0 to +3.0); Calcium, Ionized (arterial) 1.14 mmol/L (1.12-1.30); Hematocrit-ABG 39 % (36.0-47.0); Hemoglobin (Hb) 13.3 g/dL (12.0-16.0); O2 Tension (PaO2), arterial 162.9 mmHg (> 60.0); Potassium - ABG Lab 3.91 mmol/L (3.70-5.30); pH, Arterial 7.232 (7.35-7.45)
[2025-01-31 03:26] LABS: #Basophils Less than 0.03 10x3/uL (0.0-0.2); #Eosinophils Less than 0.03 10x3/uL (0.0-0.7); #Monocytes 0.08 10x3/uL (0.11-0.59); #Neutrophils 6.20 10x3/uL (1.40-6.50); %Basophils 0.2 % (0.0-1.0); %Eosinophils 0.0 % (0.0-10.0); %Lymphocytes 4.4 % (21.0-51.0); %Monocytes 1.2 % (0.0-10.0); %Neutrophils 93.9 % (42.0-75.0); Hematocrit 39.8 % (36.0-47.0); Hemoglobin 12.2 g/dL (12.0-16.0); Mean Corpuscular Hemoglobin 28.3 pg (27.0-31.0); Mean Corpuscular Volume 92.3 fL (78.0-98.0); Platelet Count 249 10x3/uL (130-400); Red Blood Cell (RBC) Count 4.31 mill/uL (4.20-5.40); White Blood Cell (WBC) Count 6.60 10x3/uL (4.8-10.8)
[2025-01-31 03:49] LABS: Anion Gap 14 mmol/L (10-20); BUN (Urea Nitrogen) 18 mg/dL (9.8-20.1); Calc. Creatinine Clearance 42 mL/min (70-130); Calcium 8.4 mg/dL (7.8-10.44); Carbon Dioxide 31 mmol/L (23-31); Chloride 98 mmol/L (98-107); Glucose 221 mg/dL (83-110); Potassium 4.1 mmol/L (3.5-5.1); Sodium 139 mmol/L (136-145)
[2025-01-31 04:40] LABS: Actual Bicarbonate (HCO3v) 34.0 mEq/L (22-28); Base Excess 4.1 mEq/L (-2.0 to +3.0); Calcium, Ionized (venous) 1.11 mmol/L (1.16-1.32); Chloride (VBG) 97 mmol/L (98-106); Hematocrit-VBG 40 % (36.0-47.0); Hemoglobin (Hb) 13.7 g/dL (11.7-16.1); Potassium (VBG) 4.08 mmol/L (3.70-5.30); Sodium 139 mmol/L (133-146)
[2025-01-31] MEDS ORDERED: ESZOPICLONE 2 MG PO SCH (06:45)
[2025-01-31] MEDS: Famotidine 20 MG TAB PO SCH (09:02)
[2025-01-31] MEDS: Aspirin Chewable 81 MG TAB PO SCH (09:02)
[2025-01-31] MEDS: Enoxaparin 40 MG (0.4 mL) SYRINGE SC SCH (09:03)
[2025-01-31] MEDS: Cyanocobalamin (Vitamin B-12) 1,000 MCG TAB PO SCH (09:03)
[2025-01-31] MEDS: PARoxetine 20 MG TAB PO SCH (09:04)
[2025-01-31] MEDS: ALPRAZolam 0.5 MG TAB PO SCH (20:12)
[2025-01-31] MEDS ORDERED: ALPRAZolam 0.5 MG TAB PO SCH (21:00)
[2025-02-01 03:44] LABS: #Basophils Less than 0.03 10x3/uL (0.0-0.2); #Eosinophils Less than 0.03 10x3/uL (0.0-0.7); #Monocytes 0.64 10x3/uL (0.11-0.59); #Neutrophils 12.49 10x3/uL (1.40-6.50); %Basophils 0.1 % (0.0-1.0); %Eosinophils 0.0 % (0.0-10.0); %Lymphocytes 2.1 % (21.0-51.0); %Monocytes 4.7 % (0.0-10.0); %Neutrophils 92.5 % (42.0-75.0); Hematocrit 39.7 % (36.0-47.0); Hemoglobin 11.8 g/dL (12.0-16.0); Mean Corpuscular Hemoglobin 28.1 pg (27.0-31.0); Mean Corpuscular Volume 94.5 fL (78.0-98.0); Platelet Count 269 10x3/uL (130-400); Red Blood Cell (RBC) Count 4.20 mill/uL (4.20-5.40); White Blood Cell (WBC) Count 13.51 10x3/uL (4.8-10.8)
[2025-02-01 04:32] LABS: Anion Gap 12 mmol/L (10-20); BUN (Urea Nitrogen) 26 mg/dL (9.8-20.1); Calc. Creatinine Clearance 43 mL/min (70-130); Calcium 9.0 mg/dL (7.8-10.44); Carbon Dioxide 35 mmol/L (23-31); Chloride 98 mmol/L (98-107); Glucose 146 mg/dL (83-110); Potassium 5.0 mmol/L (3.5-5.1); Sodium 140 mmol/L (136-145)
[2025-02-01 15:03] LABS: CO2 Tension 65.8 mmHg (35.0-45.0)
[2025-02-02 03:12] LABS: #Basophils Less than 0.03 10x3/uL (0.0-0.2); #Eosinophils Less than 0.03 10x3/uL (0.0-0.7); #Monocytes 0.33 10x3/uL (0.11-0.59); #Neutrophils 10.52 10x3/uL (1.40-6.50); %Basophils 0.1 % (0.0-1.0); %Eosinophils 0.0 % (0.0-10.0); %Lymphocytes 2.0 % (21.0-51.0); %Monocytes 3.0 % (0.0-10.0); %Neutrophils 94.0 % (42.0-75.0); Hematocrit 39.8 % (36.0-47.0); Hemoglobin 11.7 g/dL (12.0-16.0); Mean Corpuscular Hemoglobin 28.5 pg (27.0-31.0); Mean Corpuscular Volume 97.1 fL (78.0-98.0); Platelet Count 283 10x3/uL (130-400); Red Blood Cell (RBC) Count 4.10 mill/uL (4.20-5.40); White Blood Cell (WBC) Count 11.18 10x3/uL (4.8-10.8)
[2025-02-02 03:22] LABS: Actual Bicarbonate (HCO3v) 33.5 mEq/L (22-28); Base Excess 4.9 mEq/L (-2.0 to +3.0); Calcium, Ionized (venous) 1.19 mmol/L (1.16-1.32); Chloride (VBG) 98 mmol/L (98-106); Hematocrit-VBG 39 % (36.0-47.0); Hemoglobin (Hb) 13.1 g/dL (11.7-16.1); Potassium (VBG) 5.16 mmol/L (3.70-5.30); Sodium 140 mmol/L (133-146)
[2025-02-02 03:48] LABS: Anion Gap 13 mmol/L (10-20); BUN (Urea Nitrogen) 30 mg/dL (9.8-20.1); Calc. Creatinine Clearance 52 mL/min (70-130); Calcium 9.3 mg/dL (7.8-10.44); Carbon Dioxide 30 mmol/L (23-31); Chloride 100 mmol/L (98-107); Glucose 152 mg/dL (83-110); Potassium 5.3 mmol/L (3.5-5.1); Sodium 138 mmol/L (136-145)
[2025-02-03 03:13] LABS: Actual Bicarbonate (HCO3v) 37.1 mEq/L (22-28); Base Excess 8.2 mEq/L (-2.0 to +3.0); Calcium, Ionized (venous) 1.22 mmol/L (1.16-1.32); Chloride (VBG) 95 mmol/L (98-106); Hematocrit-VBG 39 % (36.0-47.0); Hemoglobin (Hb) 13.2 g/dL (11.7-16.1); Potassium (VBG) 4.91 mmol/L (3.70-5.30); Sodium 137 mmol/L (133-146)
[2025-02-03] MEDS: Mupirocin 1 GM TUBE TP SCH (08:33)
[2025-02-03] MEDS: ALPRAZolam 0.25 MG TAB PO SCH (20:24)
[2025-02-04 04:39] LABS: Actual Bicarbonate (HCO3v) 38.8 mEq/L (22-28); Base Excess 9.9 mEq/L (-2.0 to +3.0); Calcium, Ionized (venous) 1.20 mmol/L (1.16-1.32); Chloride (VBG) 91 mmol/L (98-106); Hematocrit-VBG 39 % (36.0-47.0); Hemoglobin (Hb) 13.4 g/dL (11.7-16.1); Potassium (VBG) 5.24 mmol/L (3.70-5.30); Sodium 136 mmol/L (133-146)
[2025-02-04 10:44] LABS: Anion Gap 14 mmol/L (10-20); BUN (Urea Nitrogen) 21 mg/dL (9.8-20.1); Calc. Creatinine Clearance 59 mL/min (70-130); Calcium 9.5 mg/dL (7.8-10.44); Carbon Dioxide 40 mmol/L (23-31); Chloride 90 mmol/L (98-107); Glucose 137 mg/dL (83-110); Potassium 5.0 mmol/L (3.5-5.1); Sodium 139 mmol/L (136-145)
[2025-02-05 03:35] LABS: Actual Bicarbonate (HCO3v) 43.1 mEq/L (22-28); Base Excess 16.5 mEq/L (-2.0 to +3.0); Calcium, Ionized (venous) 1.16 mmol/L (1.16-1.32); Chloride (VBG) 89 mmol/L (98-106); Hematocrit-VBG 41 % (36.0-47.0); Hemoglobin (Hb) 14.0 g/dL (11.7-16.1); Potassium (VBG) 5.13 mmol/L (3.70-5.30); Sodium 136 mmol/L (133-146)
[2025-02-05 03:49] LABS: Anion Gap 14 mmol/L (10-20); BUN (Urea Nitrogen) 18 mg/dL (9.8-20.1); Calc. Creatinine Clearance 62 mL/min (70-130); Calcium 9.5 mg/dL (7.8-10.44); Carbon Dioxide 39 mmol/L (23-31); Chloride 90 mmol/L (98-107); Glucose 146 mg/dL (83-110); Potassium 5.1 mmol/L (3.5-5.1); Sodium 138 mmol/L (136-145)
[2025-02-05] MEDS: Acetaminophen 325 MG TAB PO PRN (07:54)
[2025-02-05 20:00] VITALS: BMI 22.2
[2025-02-06 05:03] LABS: Anion Gap 11 mmol/L (10-20); BUN (Urea Nitrogen) 18 mg/dL (9.8-20.1); Calc. Creatinine Clearance 59 mL/min (70-130); Calcium 9.2 mg/dL (7.8-10.44); Carbon Dioxide 40 mmol/L (23-31); Chloride 92 mmol/L (98-107); Glucose 128 mg/dL (83-110); Potassium 5.7 mmol/L (3.5-5.1); Sodium 137 mmol/L (136-145)
[2025-02-06] MEDS: Sodium Polystyrene Sulfonate 15 GM (60 mL) BOT PO SCH (09:16)
[2025-02-06 18:14] LABS: Anion Gap 16 mmol/L (10-20); BUN (Urea Nitrogen) 23 mg/dL (9.8-20.1); Calc. Creatinine Clearance 44 mL/min (70-130); Calcium 9.7 mg/dL (7.8-10.44); Carbon Dioxide 38 mmol/L (23-31); Chloride 88 mmol/L (98-107); Glucose 165 mg/dL (83-110); Potassium 5.1 mmol/L (3.5-5.1); Sodium 137 mmol/L (136-145)
[2025-02-07 04:15] LABS: Anion Gap 13 mmol/L (10-20); BUN (Urea Nitrogen) 19 mg/dL (9.8-20.1); Calc. Creatinine Clearance 60 mL/min (70-130); Calcium 9.0 mg/dL (7.8-10.44); Carbon Dioxide 37 mmol/L (23-31); Chloride 93 mmol/L (98-107); Glucose 88 mg/dL (83-110); Potassium 4.6 mmol/L (3.5-5.1); Sodium 138 mmol/L (136-145)
[2025-02-08 05:59] LABS: Anion Gap 13 mmol/L (10-20); BUN (Urea Nitrogen) 23 mg/dL (9.8-20.1); Calc. Creatinine Clearance 43 mL/min (70-130); Calcium 9.1 mg/dL (7.8-10.44); Carbon Dioxide 37 mmol/L (23-31); Chloride 94 mmol/L (98-107); Glucose 82 mg/dL (83-110); Potassium 4.6 mmol/L (3.5-5.1); Sodium 139 mmol/L (136-145)
[2025-02-08] MEDS: Senokot S 8.6-50 MG TAB PO SCH (20:54)
[2025-02-09 05:13] LABS: Anion Gap 10 mmol/L (10-20); BUN (Urea Nitrogen) 21 mg/dL (9.8-20.1); Calc. Creatinine Clearance 54 mL/min (70-130); Calcium 8.3 mg/dL (7.8-10.44); Carbon Dioxide 35 mmol/L (23-31); Chloride 95 mmol/L (98-107); Glucose 84 mg/dL (83-110); Potassium 4.0 mmol/L (3.5-5.1); Sodium 136 mmol/L (136-145)
[2025-02-10 05:37] LABS: Anion Gap 12 mmol/L (10-20); BUN (Urea Nitrogen) 22 mg/dL (9.8-20.1); Calc. Creatinine Clearance 49 mL/min (70-130); Calcium 8.5 mg/dL (7.8-10.44); Carbon Dioxide 33 mmol/L (23-31); Chloride 97 mmol/L (98-107); Glucose 76 mg/dL (83-110); Potassium 3.9 mmol/L (3.5-5.1); Sodium 138 mmol/L (136-145)
[2025-02-10 15:43] VITALS: BP 108/56; TEMP 98
== END 2025-02-10 15:46 | disposition home or self-care (01) | DRG 189 ==
LOC: ERS 18:58 → ERHOLD 21:53 → IMCU/EMU 01-31 06:40 → MSONC 02-07 10:18
PROVIDERS: ADMIT Internal Medicine; ATTEND Internal Medicine
PROC: 3E03329 Introduction of Other Anti-infective into Peripheral Vein, Percutaneous Approach (ICD-10-PCS; principal; 2025-01-30)
PROC: 4A133R1 Monitoring of Arterial Saturation, Peripheral, Percutaneous Approach (ICD-10-PCS; 2025-01-30)
PROC: 5A09357 Assistance with Respiratory Ventilation, Less than 24 Consecutive Hours, Continuous Positive Airway Pressure (ICD-10-PCS; 2025-01-30)
DX: J96.21 Acute and chronic respiratory failure with hypoxia (principal); I50.33 Acute on chronic diastolic (congestive) heart failure; J44.1 Chronic obstructive pulmonary disease with (acute) exacerbation; E87.29 Other acidosis; J45.901 Unspecified asthma with (acute) exacerbation; F03.93 Unspecified dementia, unspecified severity, with mood disturbance; F03.94 Unspecified dementia, unspecified severity, with anxiety; Z66 Do not resuscitate; J96.22 Acute and chronic respiratory failure with hypercapnia; I11.0 Hypertensive heart disease with heart failure; E03.9 Hypothyroidism, unspecified; I48.0 Paroxysmal atrial fibrillation; I34.0 Nonrheumatic mitral (valve) insufficiency; I27.20 Pulmonary hypertension, unspecified; I36.1 Nonrheumatic tricuspid (valve) insufficiency; F10.90 Alcohol use, unspecified, uncomplicated; Z87.01 Personal history of pneumonia (recurrent); Z95.818 Presence of other cardiac implants and grafts; Z87.891 Personal history of nicotine dependence; Z88.8 Allergy status to other drugs, medicaments and biological substances; Z88.2 Allergy status to sulfonamides; Z88.7 Allergy status to serum and vaccine; Z79.899 Other long term (current) drug therapy; Z79.890 Hormone replacement therapy; Z79.82 Long term (current) use of aspirin; Z98.890 Other specified postprocedural states; K59.00 Constipation, unspecified; D72.829 Elevated white blood cell count, unspecified
CPT/HCPCS: 36415; 71045; 80048; 80053; 81001; 82805; 83605; 83880; 84484; 85025; 87040; 87077; 87086; 87149; 93005; 93306; 94640; 94660; 94760; 96365; 96367; 96375; J0696; J1650; J1940; J2919; J3370; J7620; J7626

== ENCOUNTER 2025-06-07 10:43 | Outpatient (CLI) | payer MEDICARE | END 2025-06-07 10:44 | disposition home or self-care (01) | LOC: RAD 10:43 | PROVIDERS: ATTEND Internal Medicine | DX: R06.00 Dyspnea, unspecified (principal); J90 Pleural effusion, not elsewhere classified; R91.8 Other nonspecific abnormal finding of lung field; L90.5 Scar conditions and fibrosis of skin | CPT/HCPCS: 71046 ==